=== PATIENT | male | born 1950 | race Caucasian/White ===

== ENCOUNTER → 2017-08-14 14:58 | Outpatient (CLI) | payer MEDICARE, OTHER, SELFPAY ==
--- NOTE | 2017-08-14 15:20 | ECHOD_ITS ---
Reason For Study: MURMUR Procedure This was a 2D Doppler, Color Flow transthoracic echocardiogram. The exam was of fair technical quality due to body habitus. The study was technically difficult. Exam performed in department. Left Ventricle Normal LV size. Left ventricular systolic function is normal. The estimated ejection fraction is 60 %. No evidence for diastolic dysfunction. No regional wall motion abnormalities noted. Right Ventricle Normal RV size. Normal systolic function. Atria The left atrium is mildly enlarged. Normal right atrium. No doppler evidence for ASD. Mitral Valve There is no mitral annular calcification. Normal mitral valve. Trivial mitral valve insufficiency. Tricuspid Valve Normal tricuspid valve. Mild tricuspid valve insufficiency. Unable to estimate RV systolic pressure/pulmonary artery pressure due to technically difficult study. Aortic Valve Trisinus/trileaflet aortic valve. Moderate focal aortic valve calcification. Trivial aortic valve insufficiency. Pulmonic Valve The pulmonic valve is not well visualized. Great Vessels Normal sized aortic root. Pericardium/Pleural No pericardial effusion. MMode/2D Measurements & Calculations LVIDd: 4.6 cm IVSd: 0.69 cm LVOT diam: 2.1 cm LVIDs: 3.0 cm LVPWd: 0.82 cm LVOT area: 3.4 cm2 RVDd: 2.9 cm FS: 36.1 % Ao root diam: 3.0 cm LAV(MOD-bp): 37.8 ml EDV(MOD-sp2): 98.1 ml LAV(MOD-bp) Indexed: 18.7 ml/m2 EF(MOD-sp2): 67.2 % LAV(MOD-sp2): 35.9 ml LAV(MOD-sp4): 38.7 ml SV(MOD-sp2): 65.9 ml LA A4 area: 15.3 cm2 RA A4 area: 10.8 cm2 Doppler Measurements & Calculations MV E max cory: 68.8 cm/sec Lat Peak E' Cory: 10.3 cm/sec Med Peak E' Cory: 6.6 cm/sec MV A max cory: 52.1 cm/sec E/E' lat: 6.7 E/E' med: 10.5 MV E/A: 1.3 Ao V2 max: 130.4 cm/sec LV V1 max: 97.6 cm/sec PA V2 max: 132.8 cm/sec Ao max P.8 mmHg LV V1 max P.8 mmHg MORRIS(V,D): 2.5 cm2 Interpretation Summary The study was technically difficult. Left ventricular systolic function is normal. The estimated ejection fraction is 60 %. The left atrium is mildly enlarged. Trivial mitral valve insufficiency. Mild tricuspid valve insufficiency. Moderate focal aortic valve calcification. Trivial aortic valve insufficiency. Unable to estimate RV systolic pressure/pulmonary artery pressure due to technically difficult study. No evidence for diastolic dysfunction. Ordering Physician: Claudia Guy Referring Physician: Claudia Guy Performed By: Nasreen Leblanc, RDCS, RVT
== END ==
PROVIDERS: Family Provider Family Medicine; PCP Family Medicine; Visit Provider Family Medicine
DX: R01.1 Cardiac murmur, unspecified (principal)
CPT/HCPCS: 93306

== ENCOUNTER 2017-08-18 10:25 | Inpatient (IN) | payer MEDICARE, OTHER, SELFPAY ==
[2017-08-05 13:04] VITALS: BP 117/76; PULSE 82; RESP 18; TEMP 37.2; O2SAT 96; BMI 34.0
--- NOTE | 2017-08-05 13:31 | SDCEKG_ITS ---
Test Reason : Blood Pressure : / mmHG Vent. Rate : 072 BPM Atrial Rate : 072 BPM P-R Int : 170 ms QRS Dur : 086 ms QT Int : 390 ms P-R-T Axes : 030 001 -24 degrees QTc Int : 427 ms Normal sinus rhythm Nonspecific T wave abnormality Abnormal ECG Confirmed by ROSE PELLETIER, CARLOTA ([id number]), subeditor AMARILYS GANDHI ([id number]) on 08/06/2017 9:09:36 AM Referred By: RUBIO WHEELER Confirmed By:CARLOTA ROSE MD
[2017-08-05 14:06] LABS: Hematocrit 45.6 % (40-54); Hemoglobin 15.3 g/dl (13.0-16.5); Mean Corp Hgb Conc 33.6 g/gl (32-36); Mean Corpuscular Hgb 29.9 pg (27.0-32.0); Mean Corpuscular Volume 89.2 fL (80-94); Mean Platelet Vol. 9.6 fl (6.2-12.0); Platelet Count 133 K/mm3 (150-450); RBC Distribution Width CV 12.6 % (11.6-14.6); RBC Distribution Width SD 40.6 fl (35.1-43.9); Red Blood Count 5.11 M/mm3 (4.6-6.2); White Blood Count 5.9 K/mm3 (4.4-11.0)
[2017-08-05 14:07] LABS: Scan Indicated on CBC? Y/N NO
[2017-08-05 14:21] LABS: International Normalized Ratio 1.1; Partial Thromboplast Time 29.7 Seconds (24.1-36.2); Prothrombin Time (Protime)PT. 14.5 SECONDS (11.7-14.9)
[2017-08-05 14:34] LABS: AST(SGOT) 18 U/L (15-37); Alanine Aminotransfer ALT/SGPT 28 U/L (16-61); Albumin, Serum 3.6 g/dL (3.2-5.0); Alkaline Phosphatase 69 U/L (45-117); Anion Gap 8 (5-15); BUN 13 mg/dL (7-18); BUN/Creat Ratio 13.8 RATIO (10-20); Bilirubin, Direct 0.17 mg/dL (0.00-0.30); Calcium,Total 8.4 mg/dL (8.5-10.1); Chloride 104 mmol/L (98-107); Creatinine, Serum 0.94 mg/dL (0.70-1.30); EST Glomerular Filtration Rate 86 mL/min (>60); Est Glom Filt Rate - Afr Amer 104 mL/min (>60); Globulin 3.5 g/dL (2.2-4.2); Glucose 120 mg/dL (74-106); Potassium 3.4 mmol/L (3.5-5.1); Protein, Total 7.1 g/dL (6.4-8.2); Sodium Level 138 mmol/L (136-145)
[2017-08-18] VITALS (13 sets, daily range): BP systolic 90–126; BP diastolic 51–90; PULSE 48–70; RESP 14–18; TEMP 36.1–36.5; O2SAT 96–100; BMI 34.0
[2017-08-18] MEDS: oxyCODONE HCl Cr 10 MG Tablet PO (05:55)
[2017-08-18] MEDS: Acetaminophen 500 MG Tablet 1000 MG PO ×3 (05:56→21:35)
[2017-08-18] MEDS: Celecoxib 200 MG Capsule 400 MG PO (05:56)
[2017-08-18] MEDS: Lactated Ringers 1,000 ML 999 ML IV (06:30)
[2017-08-18] MEDS: Cefazolin 2 GM in 0.9% Normal Saline 100 ML IV (07:19)
--- NOTE | 2017-08-18 07:25 | PCM.OPRPT ---
Report of Operation Date of Procedure: 08/18/17 Pre-Operative Diagnosis: Severe osteoarthritis right knee Post-Operative Diagnosis: Severe osteoarthritis right knee Surgery/Procedure Performed:: Total knee arthroplasty right Description of Surgical Findings:: Eburnation of bone, periarticular osteophytes consistent with end-stage osteoarthritis grinder outside diameter: Roberth Schultz Type of Anesthesia:: Spinal Anesthesiologist: Chance Yusuf Special Medications: txa Estimated Blood Loss (mL): 100 Fluids Replaced: See anesthesia report Description of Procedure: Implants: [place] triathlon size 5 CR femur, 5 tibia, 35 x 10 mm patella 9 mm CS articulating spacer cemented components with Simplex Indications: Patient has severe end-stage osteoarthritis diagnosed via x-rays in the knee. They have failed all forms of conservative measures including activity modification, injections, anti-inflammatories, use of assistive device. The patient has pain that affects on a daily basis and prevents him from doing things that they enjoyed. They have elected to undergo the above procedure. The risks of the procedure were discussed at length and their questions were answered. Procedure description: The patient was greeted in the preoperative area. The right knee was then marked with a surgical marker. Patient was then taken to or [address]. They were administered a dose of antibiotics as well as tranexamic acid. Once adequate anesthesia was obtained and airway was secured to placed in supine position on the operating room table. A well-padded tourniquet was placed on the affected extremity. Leg was then prepped and draped in the usual sterile fashion from the knee down. Ioban was used on the skin. Surgical timeout was then performed and confirmed with all present. Six-inch Esmarch was used to examine the limb and tourniquet was then inflated to 250 mmHg. A longitudinal incision was then planned and carried out in the anterior aspect of the knee. The dissection was then carried the length of the incision the extensor mechanism was identified. Standard medial parapatellar arthrotomy was then performed revealing severe eburnation of bone and periarticular osteophytes. There is complete loss of cartilage especially in the medial compartment with varus alignment. Anterior fat pad was removed for visualization purposes and the anterior medial aspect of the tibia was skeletonized for exposure to the knee. The knee was then flexed the patella was inverted. Opening reamer was then used in the femur approximately 1 cm anterior to the attachment of the PCL. The intramedullary valgus wand was then placed in the femur set at 5? of valgus. The distal femoral cutting jig was then applied to the femur with anticipated resection of approximately 8 mm. This was then made with a oscillating saw. The sizing guide was then placed referencing off the posterior condyles and also reference off the epicondylar axis. This was measured and the appropriate size 4-in-1 cutting jig was then applied to the distal femur. Anterior posterior cuts were made followed by the anterior and posterior chamfer cuts. These bony pieces and fragments were removed and placed on the back table. Posterior retractor was then utilized and the tibia was subluxed anteriorly. Extramedullary tibial alignment jig was then applied to the tibia referencing off the medial one third of the tibial tubercle the anterior tibial spine the middle aspect of the tibiotalar joint. Also reference off patient's [place] slope. The tibial cutting jig was then pinned with anticipated resection of 2 mm off of the deficient medial tibial condyle. This cut was made with the oscillating saw. Once this was complete a laminar broomcorn sorter was utilized in both medial lateral meniscus were removed and a posterior capsular osteophytes were also removed. Posterior capsule release was performed in the posterior capsule as well as the geniculate arteries are treated with the aqua Mariia. The tibia was incised and the appropriate sized tibial tray was then pinned. The femoral box cutting jig was then applied to the femur and the box was prepared removing a portion of the intercondylar notch. The femoral trial was then placed and the knee was trialed. Full flexion-extension were easily achieved. The knee seemed to balance quite nicely. Any remaining osteophytes were removed at this time. Once this was complete the patella was everted and the Ivett patella reaming device was then utilized the patella was then placed in the appropriate jig and reamer was then used to remove approximately 9 mm of the undersurface of the patella. A soft tissue remaining was in the way was removed and patella trial was then placed listed maintain excellent tracking using the no thumbs technique. The tibial tray at this point was punched to accommodate the fins of the final implant. At this point cement was mixed on the back table. The trial components were removed and the knee was copiously irrigated. Did use a cocktail of injection for postoperative pain control. The final components were then cemented in the standard fashion and excess cement was removed with cement removal tools and patellar clamp is placed in the patella. As the cement had cured in full extension tourniquet was deflated and hemostasis was perfect with Bovie cautery as well as the aqua Manus. Needle is once again trialed with different size polyethylenes to ensure the full range of motion was achieved as well as excellent balancing ligamentously was achieved. At this point the knee was copiously irrigated. Final implant was then inserted locking mechanism was engaged and confirmed to be locked. The arthrotomy was then closed with #1 Vicryl aggravate type fashion interrupted. Subcutaneous tissue was closed with 0 Vicryl and surgical jade were placed in the skin. A occlusive silver impregnated dressing was then applied followed by well-padded sterile dressing secured with an Ramirez wrap. The patient was taken to the PACU in stable condition. No complications known at this time. Postoperatively we will maintain standard total knee postoperative protocol. The use of the physician medical office receptionist assistant was integral during this procedure. They assisted with positioning placement of the tourniquet retracting closure and placement of the dressing. The procedure would have been much more difficult without their expertise and assistance - Complications None known - Admit VTE Documentation VTE Present on Admission: Yes VTE Mechan Device Prophylaxis: SCD's, Thigh High ROSARIO Hose VTE Pharm Prophylaxis ordered?: Yes
--- NOTE | 2017-08-18 09:38 | RAD_ITS ---
STUDY: X-RAY - RIGHT KNEE REASON FOR EXAM: Male, 67 years old. Total knee replacement. TECHNIQUE: AP and lateral view(s) of the knee. COMPARISON: Comparison is made with prior radiograph dated May 24, 2016. FINDINGS: Normal visualized distal femur. Normal visualized proximal tibia and fibula. Normal proximal tibiofibular articulation. The patient is status post total knee replacement. There is good alignment. Postoperative soft tissue changes. RAD/Knee 1 or 2 Views IMPRESSION: Total knee replacement. There is good alignment. Postoperative soft tissue changes. Electronically Signed: Adrian Lawler MD at 10:22 EDT Tel [phone], Service support ,
[2017-08-18] MEDS: Ketorolac 15 MG/ML Vial IV (11:01)
[2017-08-18] MEDS: Lactated Ringers 1,000 ML 125 ML IV ×2 (12:01→18:59)
--- NOTE | 2017-08-18 12:18 | CASEMGMT ---
[facility] Face to Face with patient for initial transition planning/care coordination assessment. RN ROBBIE introduced self and role at [facility]. Patient lying in bed, alert and oriented, at bedside. Patient willing to participate in assessment and is able to answer all questions appropriately. Care providers, pharmacy, and demographics verified. See link attached. Patient wishes to discharge home and is setup with [facility] for outpatient therapy with providing transportation. Patient states he has no further needs or concerns at this time. CM to follow for discharge planning needs that may arise. Disposition Plan: Patient to discharge home with outpatient therapy, family support, and follow-u plans in place.
[2017-08-18] MEDS: Cefazolin 1 GM/50 ML BAG IV ×2 (13:52→23:03)
--- NOTE | 2017-08-18 16:04 | NURSING ---
PT HAS NOT VOIDED SINCE ARRIVED TO FLOOR. THIS NURSE ENCOURAGED PT TO USE BATHROOM. WAS ONLY ABLE TO VOID AN UNMEASUREABLE AMT OF URINE. APPROXIMATELY 25CC. THIS NURSE ASSISTED PT INTO BED AND BLADDER SCANNED FOR 641ML. WILL WAIT ANOTHER 2 HOURS AND AT 1800 IF NO VOID I WILL [facility].
[2017-08-18] MEDS: Aspirin 325 MG Tablet PO (18:54)
[2017-08-18] MEDS: 0.9% NaCl Peripheral Flush Adult/Peds IV (19:03)
[2017-08-18] MEDS: Morphine 4 MG/ML Syringe IV (19:03)
[2017-08-18] MEDS: Senna/Docusate Sodium 1 Tablet 2 TABLET PO (21:34)
[2017-08-18] MEDS: morphine SR 15 MG Tablet PO (21:36)
[2017-08-18] MEDS: oxyCODONE 5 MG Tablet PO (23:02)
[2017-08-19 03:27] VITALS: BP 117/73; PULSE 71; RESP 16; TEMP 36.7; O2SAT 96
[2017-08-19] MEDS: oxyCODONE 5 MG Tablet PO ×2 (03:33→16:58)
[2017-08-19] MEDS: Acetaminophen 500 MG Tablet 1000 MG PO ×3 (06:09→21:08)
[2017-08-19] MEDS: 0.9% NaCl Peripheral Flush Adult/Peds IV (06:10)
[2017-08-19 06:44] LABS: Hematocrit 42.2 % (40-54); Hemoglobin 14.2 g/dl (13.0-16.5); Mean Corp Hgb Conc 33.6 g/gl (32-36); Mean Corpuscular Hgb 30.9 pg (27.0-32.0); Mean Corpuscular Volume 91.9 fL (80-94); Mean Platelet Vol. 9.7 fl (6.2-12.0); Platelet Count 150 K/mm3 (150-450); RBC Distribution Width CV 12.9 % (11.6-14.6); RBC Distribution Width SD 42.6 fl (35.1-43.9); Red Blood Count 4.59 M/mm3 (4.6-6.2); White Blood Count 9.4 K/mm3 (4.4-11.0)
[2017-08-19 06:49] LABS: Scan Indicated on CBC? Y/N NO
[2017-08-19 07:05] LABS: Anion Gap 9 (5-15); BUN 11 mg/dL (7-18); Calcium,Total 8.6 mg/dL (8.5-10.1); Chloride 105 mmol/L (98-107); Creatinine, Serum 0.85 mg/dL (0.70-1.30); EST Glomerular Filtration Rate 96 mL/min (>60); Est Glom Filt Rate - Afr Amer 117 mL/min (>60); Estimated Creatinine Clearance 78.19 ml/min; Glucose 100 mg/dL (74-106); Potassium 3.5 mmol/L (3.5-5.1); Sodium Level 138 mmol/L (136-145)
--- NOTE | 2017-08-19 07:24 | PCM.PN.ORT ---
Subjective: Patient sitting at bedside. Pain well managed. Denies chest pain, shortness breath, calf pain, nausea vomiting. No other complaints Objective: Dressing is clean dry intact. Patient is afebrile, vital signs within normal limits. Patient neurovascular is otherwise intact. Negative signs and symptoms of DVT. - Physical Exam General: Alert, Oriented x3, Cooperative HEENT: PERRLA Oral: Moist Mucosa Neurological: Cranial nerves II-XII grossly intact Psych/Mental Status: Normal Affect, Alert and oriented to time, place, person, mood and affect Vital Signs Temp Pulse Resp BP Pulse Ox 98.0 F 71 16 117/73 96 08/19/17 03:27 08/19/17 03:27 08/19/17 03:27 08/19/17 03:27 08/19/17 03:27 Oxygen Delivery Method Room Air Weight: 95.5 kg Body Mass Index (BMI) 34.0 Intake and Output for Last 24 Hours 08/17/17 08/18/17 08/19/17 23:59 23:59 23:59 Intake Total 3327 / 3327 735 / 735 Output Total 2150 / 2150 400 / 400 Balance 1177 / 1177 335 / 335 Laboratory Tests Past 24 Hrs 08/19/17 08/19/17 06:10 06:10 WBC 9.4 RBC 4.59 L Hgb 14.2 Hct 42.2 MCV 91.9 MCH 30.9 MCHC 33.6 RDW 12.9 RDW Differential 42.6 Plt Count 150 MPV 9.7 Sodium 138 Potassium 3.5 Chloride 105 Carbon Dioxide 24.0 Anion Gap 9 BUN 11 Creatinine 0.85 Estim Creat Clear Calc 78.19 Est GFR (MDRD) Af Amer 117 Est GFR (MDRD) Non-Af 96 BUN/Creatinine Ratio 13.0 Glucose 100 Calcium 8.6 Medical Necessity - Tobacco Use Smoking Status: Former smoker Tobacco Use: Cigarettes Assessment/Plan Status post right total knee. Plan 1. Continue all pain medications as prescribed 2. Begin physical therapy today 3. Aspirin 325 mg 1 p.o. every 12 hours ?30 days for postop DVT prophylaxis 4. Encourage incentive spirometry 5. Probable discharge home tomorrow
[2017-08-19 07:48] VITALS: PULSE 70
[2017-08-19] MEDS: Senna/Docusate Sodium 1 Tablet 2 TABLET PO ×2 (07:55→21:08)
[2017-08-19] MEDS: Aspirin 325 MG Tablet PO ×2 (07:56→16:58)
[2017-08-19] MEDS: Famotidine 20 MG Tablet PO (07:56)
[2017-08-19 09:57] VITALS: BP 122/77; PULSE 74; RESP 18; TEMP 37.2; O2SAT 97
[2017-08-19] MEDS: morphine SR 15 MG Tablet PO ×2 (10:00→21:08)
[2017-08-19 14:26] VITALS: BP 146/78; PULSE 81; RESP 18; TEMP 37.2; O2SAT 94
[2017-08-19 20:50] VITALS: BP 128/81; PULSE 88; RESP 18; TEMP 37.2; O2SAT 95
[2017-08-20 02:50] VITALS: BP 121/87; PULSE 85; RESP 18; TEMP 36.8; O2SAT 95
[2017-08-20] MEDS: Acetaminophen 500 MG Tablet 1000 MG PO ×2 (06:21→13:45)
[2017-08-20 07:04] LABS: Hematocrit 41.3 % (40-54); Hemoglobin 13.6 g/dl (13.0-16.5); Mean Corp Hgb Conc 32.9 g/gl (32-36); Mean Corpuscular Hgb 29.8 pg (27.0-32.0); Mean Corpuscular Volume 90.6 fL (80-94); Mean Platelet Vol. 9.4 fl (6.2-12.0); Platelet Count 125 K/mm3 (150-450); RBC Distribution Width CV 13.2 % (11.6-14.6); RBC Distribution Width SD 43.3 fl (35.1-43.9); Red Blood Count 4.56 M/mm3 (4.6-6.2); White Blood Count 10.8 K/mm3 (4.4-11.0)
[2017-08-20 07:07] LABS: Scan Indicated on CBC? Y/N NO
[2017-08-20] MEDS: Aspirin 325 MG Tablet PO (08:04)
[2017-08-20] MEDS: oxyCODONE 5 MG Tablet PO (08:06)
--- NOTE | 2017-08-20 08:12 | PCM.PN.ORT ---
Subjective: Patient sitting at bedside eating breakfast. Pain well managed. Patient denies chest pain, shortness breath, calf pain, nausea vomiting. Has no other complaints. Ready for discharge home. Objective: Dressing is clean dry intact. Negative signs and symptoms of DVT. Vital signs labs within normal limits. Patient is afebrile neurovascular is intact. - Physical Exam General: Alert, Oriented x3, Cooperative HEENT: PERRLA Oral: Moist Mucosa Cardiovascular: Regular rate Neurological: Cranial nerves II-XII grossly intact Psych/Mental Status: Normal Affect, Alert and oriented to time, place, person, mood and affect Vital Signs Temp Pulse Resp BP Pulse Ox 98.3 F 85 18 121/87 H 95 08/20/17 02:50 08/20/17 02:50 08/20/17 02:50 08/20/17 02:50 08/20/17 02:50 Oxygen Delivery Method Room Air Weight: 95.5 kg Body Mass Index (BMI) 34.0 Intake and Output for Last 24 Hours 08/18/17 08/19/17 08/20/17 23:59 23:59 23:59 Intake Total 3327 / 3327 735 / 735 720 / 720 Output Total 2150 / 2150 400 / 400 925 / 925 Balance 1177 / 1177 335 / 335 -205 / -205 Laboratory Tests Past 24 Hrs 08/20/17 06:52 WBC 10.8 RBC 4.56 L Hgb 13.6 Hct 41.3 MCV 90.6 MCH 29.8 MCHC 32.9 RDW 13.2 RDW Differential 43.3 Plt Count 125 L MPV 9.4 Medical Necessity - Tobacco Use Smoking Status: Former smoker Tobacco Use: Cigarettes Assessment/Plan Status post right total knee. Plan 1. Continue all pain medications as prescribed 2. Continue physical therapy at [facility] 3. Aspirin 325 mg 1 p.o. every 12 hours ?30 days for postop DVT prophylaxis 4. Follow-up as scheduled 5. Discharge home today
--- NOTE | 2017-08-20 08:18 | PCM.DC.TKR ---
Discharge Diet: No Restrictions Discharge Activity: May Not Drive, May Shower, Use Walker May shower in (days): 2 Ice area for (Minutes): 20 - each hour while awake. Weight Bearing Status: Weight bearing as tolerated Elevate: Operative Extremity Additional Activity Instructions:: Wear elastic stockings for 2 weeks after your surgery. Call your doctor if your incision/area has: Continuous Slow Oozing, Sudden Increased Bleeding, Increased Pain/ Swelling, Increased Redness, Foul Smelling Discharge Call your doctor if you observe: Fever of 101 or Higher, Coldness, Increased Pain - in extremity, Numbness or Tingling, Change in Color, Calf discomfort, Uncontrolled pain Change Dressing in (Days):: 0 - and daily as needed. Remove Dressing in (days):: 7 Cleanse incision/area with: Soap & Water Allergies/Adverse Reactions: Allergies No Known Allergies Allergy (Verified 08/05/17 13:02) Medications to take at Discharge Acetaminophen [Tylenol] 1,000 mg PO Q8 #90 tab 08/20/17 Aspirin 325 mg PO BIDCM #60 tab 08/20/17 Oxycodone [Oxyir] 5 - 10 mg PO Q6H PRN PRN 7 Days #60 tab 08/20/17 morphine SR tablet [Ms Contin] 15 mg PO BID 7 Days #14 tab 08/20/17 The following prescriptions were given: Oxycodone [Oxyir] 5 - 10 mg PO Q6H PRN PRN 7 Days #60 tab PRN Reason: Mod-Severe Pain (4-10/10) Acetaminophen [Tylenol] 1,000 mg PO Q8 #90 tab Aspirin 325 mg PO BIDCM #60 tab morphine SR tablet [Ms Contin] 15 mg PO BID 7 Days #14 tab Primary Care Physician: Idris Castillo DO [Primary Care Provider] - Please Follow Up With: Roberth Schultz PA-C When: as scheduled (see pink sheet)
[2017-08-20 08:55] VITALS: BP 122/77; PULSE 80; RESP 18; TEMP 37.3; O2SAT 93
[2017-08-20 09:00] VITALS: PULSE 80
[2017-08-20] MEDS: Famotidine 20 MG Tablet PO (10:19)
[2017-08-20] MEDS: morphine SR 15 MG Tablet PO (10:19)
[2017-08-20] MEDS: Senna/Docusate Sodium 1 Tablet 2 TABLET PO (10:19)
[2017-08-20 13:42] VITALS: BP 123/74; PULSE 86; RESP 18; TEMP 36.9; O2SAT 97
== END 2017-08-20 14:35 | disposition home or self-care (01) | DRG 470 ==
PROVIDERS: Anesthesiology; Admitting Provider Orthopaedic Surgery; Family Provider Family Medicine; PCP Family Medicine; Visit Provider Orthopaedic Surgery
PROC: 0SRC0J9 Replacement of Right Knee Joint with Synthetic Substitute, Cemented, Open Approach (ICD-10-PCS; CPT 27447; principal; 2017-08-18 06:50)
DX: M17.11 Unilateral primary osteoarthritis, right knee (principal); Z87.891 Personal history of nicotine dependence
CPT/HCPCS: 36415; 73560; 80048; 80076; 85027; 85610; 85730; 87077; 87081; 97110; 97116; 97162; 97165; 97530; 97535; C1776; J7120; A4216

== ENCOUNTER → 2018-04-30 16:41 | Outpatient (CLI) | payer MEDICARE, OTHER, SELFPAY ==
[2018-04-30 17:51] LABS: Absolute Lymphocyte Count 2.32 X10^3/ul (0.83-4.51); Absolute Neutrophil Count 3.6 X10^3/uL (2.0-7.7); Basophil# 0.02 X10^3/uL; Basophil% 0.3 % (0-1); Eosinophil# 0.14 X10^3/uL; Eosinophils% 2.1 % (0-5); Hematocrit 47.7 % (40-54); Hemoglobin 15.7 g/dl (13.0-16.5); Lymphocyte # 2.32 X10^3/ul (4.0); Lymphocyte % 34.1 % (19-41); Mean Corp Hgb Conc 32.9 g/gl (32-36); Mean Platelet Vol. 9.9 fl (6.2-12.0); Monocyte# 0.71 X10^3/uL; Monocyte% 10.4 % (0-10); Platelet Count 155 K/mm3 (150-450); RBC Distribution Width CV 12.9 % (11.6-14.6); RBC Distribution Width SD 42.9 fl (35.1-43.9); Red Blood Count 5.24 M/mm3 (4.6-6.2); White Blood Count 6.8 K/mm3 (4.4-11.0)
[2018-04-30 17:55] LABS: POSITIVE COUNT NO; POSITIVE DIFFERENTIAL NO; POSITIVE MORPHOLOGY NO
[2018-04-30 18:47] LABS: AST(SGOT) 22 U/L (15-37); Alanine Aminotransfer ALT/SGPT 36 U/L (16-61); Albumin, Serum 3.9 g/dL (3.2-5.0); Alkaline Phosphatase 80 U/L (45-117); Anion Gap 9 (5-15); BUN 14 mg/dL (7-18); BUN/Creat Ratio 19.3 RATIO (10-20); Chloride 103 mmol/L (98-107); Cholesterol 202 mg/dL (200); Creatinine, Serum 0.73 mg/dL (0.70-1.30); EST Glomerular Filtration Rate 115 mL/min (>60); Est Glom Filt Rate - Afr Amer 139 mL/min (>60); Globulin 3.8 g/dL (2.2-4.2); Glucose 78 mg/dL (74-106); High Density Lipoprotein 44 mg/dL; PSA,Total - Annual Screen 1.64 ng/mL (0.00-4.00); Potassium 3.8 mmol/L (3.5-5.1); Protein, Total 7.7 g/dL (6.4-8.2); Sodium Level 137 mmol/L (136-145); Triglycerides 85 mg/dL; Very Low Density Lipoprotein 17 mg/dL (5-40)
== END ==
PROVIDERS: Family Provider Family Medicine; PCP Family Medicine; Visit Provider Family Medicine
DX: Z00.01 Encounter for general adult medical examination with abnormal findings (principal); E78.5 Hyperlipidemia, unspecified; Z12.5 Encounter for screening for malignant neoplasm of prostate
CPT/HCPCS: 36415; 80053; 80061; 84153; 85025; G0103

== ENCOUNTER → 2019-09-24 | Outpatient (CLI) | payer MEDICARE, OTHER, SELFPAY ==
[2019-09-24 15:13] LABS: Erythrocyte Sedimentation Rate 19 mm/hr (0-20)
[2019-09-24 15:18] LABS: Vitamin B12 396 pg/mL (211-911); Vitamin D,25 Hydroxy 29.4 ng/mL
[2019-09-24 15:21] LABS: Absolute Lymphocyte Count 2.04 X10^3/uL (0.83-4.51); Absolute Neutrophil Count 3.2 X10^3/uL (2.0-7.7); Basophil# 0.02 X10^3/uL; Basophil% 0.3 % (0-1); Eosinophil# 0.11 X10^3/uL; Eosinophils% 1.8 % (0-5); Hematocrit 45.1 % (40-54); Hemoglobin 14.4 g/dL (13.0-16.5); Lymphocyte # 2.04 X10^3/ul (4.0); Lymphocyte % 33.7 % (19-41); Mean Corp Hgb Conc 31.9 g/dL (32-36); Mean Corpuscular Hgb 29.6 pg (27.0-32.0); Mean Corpuscular Volume 92.8 fL (80-94); Mean Platelet Vol. 10.6 fl (6.2-12.0); Monocyte# 0.72 X10^3/uL; Monocyte% 11.9 % (0-10); NRBC Flagged by Analyzer 0 % (0-5); Neutrophil # 3.15 X10^3/uL (2.7-7.7); Platelet Count 131 K/mm3 (150-450); RBC Distribution Width CV 13.3 % (11.6-14.6); RBC Distribution Width SD 44.8 fl (35.1-43.9); Red Blood Count 4.86 M/mm3 (4.6-6.2); White Blood Count 6.1 K/mm3 (4.4-11.0)
[2019-09-24 15:22] LABS: AST(SGOT) 16 U/L (15-37); Alanine Aminotransfer ALT/SGPT 32 U/L (16-61); Albumin, Serum 3.6 g/dL (3.2-5.0); Alkaline Phosphatase 75 U/L (45-117); Anion Gap 8 (5-15); BUN 16 mg/dL (7-18); BUN/Creat Ratio 20.7 RATIO (10-20); CPK Total, Creatine Kinase 114 U/L (39-308); Calcium,Total 8.9 mg/dL (8.5-10.1); Chloride 105 mmol/L (98-107); Creatinine, Serum 0.77 mg/dL (0.70-1.30); EST Glomerular Filtration Rate 106 mL/min (>60); Est Glom Filt Rate - Afr Amer 129 mL/min (>60); Globulin 3.7 g/dL (2.2-4.2); Glucose 102 mg/dL (74-106); PSA,Total - Annual Screen 1.67 ng/mL (0.00-4.00); Potassium 3.8 mmol/L (3.5-5.1); Protein, Total 7.3 g/dL (6.4-8.2); Sodium Level 138 mmol/L (136-145); T4 Free Direct 0.88 ng/dL (0.76-1.46); Thyroid Stim Hormone (TSH) 2.91 uIU/mL (0.358-3.74)
== END | disposition home or self-care (01) ==
LOC: MTLAB 12:21
PROVIDERS: PCP Family Medicine; Referring Provider Family Medicine; Visit Provider Family Medicine
DX: D69.6 Thrombocytopenia, unspecified (principal); E55.9 Vitamin D deficiency, unspecified; M62.81 Muscle weakness (generalized); R53.83 Other fatigue; Z12.5 Encounter for screening for malignant neoplasm of prostate
CPT/HCPCS: 36415; 80053; 82306; 82533; 82550; 82607; 84153; 84439; 84443; 85025; 85652; G0103

== ENCOUNTER → 2019-10-29 20:33 | Outpatient (CLI) | payer MEDICARE, OTHER, SELFPAY | PROVIDERS: PCP Family Medicine; Referring Provider Family Medicine; Visit Provider Family Medicine | DX: G47.10 Hypersomnia, unspecified (principal) | CPT/HCPCS: 95810 ==

== ENCOUNTER → 2019-12-24 20:29 | Outpatient (CLI) | payer MEDICARE, SELFPAY | PROVIDERS: PCP Family Medicine; Referring Provider Family Medicine; Visit Provider Family Medicine | DX: G47.10 Hypersomnia, unspecified (principal); G47.33 Obstructive sleep apnea (adult) (pediatric) | CPT/HCPCS: 95811 ==

== ENCOUNTER → 2021-10-15 | Outpatient (CLI) | payer MEDICARE, OTHER, SELFPAY ==
[2021-10-21 17:07] LABS: Lyme IgG P18 Ab Absent (.); Lyme IgG P23 Ab Present (.); Lyme IgG P28 Ab Absent (.); Lyme IgG P30 Ab Absent (.); Lyme IgG P39 Ab Present (.); Lyme IgG P41 Ab Present (.); Lyme IgG P45 Ab Absent (.); Lyme IgG P58 Ab Present (.); Lyme IgG P66 Ab Present (.); Lyme IgG P93 Ab Absent (.); Lyme IgM P23 Ab Present (.); Lyme IgM P39 Ab Absent (.); Lyme IgM P41 Ab Present (.)
[2021-10-21 17:31] LABS: Lyme IgG WB Interpretation Positive (.); Lyme IgM WB Interpretation Positive (.)
== END | disposition home or self-care (01) ==
PROVIDERS: PCP Family Medicine; Referring Provider Family Medicine; Visit Provider Family Medicine
DX: R21 Rash and other nonspecific skin eruption (principal)
CPT/HCPCS: 36415; 86617

== ENCOUNTER → 2022-10-29 | Outpatient (CLI) | payer MEDICARE, OTHER, SELFPAY | END | disposition home or self-care (01) | LOC: LAB 09:18 | PROVIDERS: PCP Family Medicine | DX: Z12.5 Encounter for screening for malignant neoplasm of prostate (principal) | CPT/HCPCS: 36415; 84153; G0103 ==

== ENCOUNTER 2022-12-27 10:52 | Emergency (ER) | payer MEDICARE, OTHER, SELFPAY ==
[2022-12-27 10:53] VITALS: BP 102/89; PULSE 73; RESP 16; TEMP 36.3; O2SAT 97; BMI 39.0
--- NOTE | 2022-12-27 11:26 | EX.ED.GUMALE ---
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 He has been currently being seen by his primary care physician Dr. Castillo and the urologist Dr. Paul Phillips. States he has had dark urine for the last couple weeks. He said its reji colored. He has had decreased oral intake nausea vomiting x1 and a fever as high as 102.3. He has had no urologic procedures. No cystoscopy. Prior similar symptoms: No Recent Illness/Hospitalization: No PFSH PFSH Home Medications acetaminophen 500 mg tablet 1,000 mg (2 x 500 mg) PO Q8 #90 tabs 08/20/17 [Rx Last Taken Unknown] aspirin 325 mg tablet 325 mg PO BIDCM #60 tabs 08/20/17 [Rx Last Taken Unknown] morphine 15 mg tablet,extended release 15 mg PO BID 7 days #14 tabs 08/20/17 [Rx Last Taken Unknown] oxycodone 5 mg tablet 5 - 10 mg (1 - 2 x 5 mg) PO Q6H PRN PRN Mod-Severe Pain (4-10/10) 7 days #60 tabs 08/20/17 [Rx Last Taken Unknown] Allergy/AdvReac Type Severity Reaction Status Date / Time No Known Allergies Allergy Verified 08/05/17 13:02 Social History Smoking Status: Former smoker ROS ROS ED ROS Narrative Abnormal colored urine. Fever. Nausea vomiting x1 several days ago. Review of Systems ROS Unobtainable: Denies due to encephalopathy Constitutional Constitutional ED: Reports fever(s) Eyes Eyes: Denies blurry vision ENT ENT ED: Denies ear pain Cardiovascular Cardiovascular: Denies chest pain Respiratory/Chest Respiratory/Chest: Denies cough or dyspnea Gastrointestinal Gastrointestinal: Reports nausea and vomiting; Denies abdominal pain, constipation, diarrhea or melena Genitourinary Genitourinary ED: Reports hematuria; Denies dysuria Musculoskeletal Musculoskeletal: Denies arthralgias or back pain Integumentary Denies abscess Neurologic Neurologic: Denies headache(s) Psychiatric Psychiatric: Denies anxiety Endocrine Endocrinology: Denies polydipsia Hematologic/Lymphatic Hematologic/Lymphatic: Denies easy bruising Allergic/Immunologic Allergic/Immunologic ED: Denies mouth swelling or tongue swelling EXAM Physical Exam Narrative Exam Narrative: Appearing 72-year-old male. Vital signs stable afebrile. Patient does not look septic toxic. HEENT exam mild dry mucous members. Otherwise unremarkable. Lungs clear. Heart regular rhythm. Abdomen soft, nontender, nondistended normal bowel sounds no peritoneal signs. Moving all 4 extremities. Nontender no edema. Neurologically is awake alert with no focal motor deficits. Back nontender. Const Vital Signs: 12/27/22 10:53 Temperature 97.3 F L Temperature Source Temporal Pulse Rate 73 Respiratory Rate 16 Blood Pressure 102/89 H Blood Pressure Mean 93 Pulse Ox 97 Oxygen Delivery Method Room Air Positive well nourished and well developed; Negative for cachectic, contractures or unkempt General Appearance ED: well developed and NAD; Negative for unkempt, cachectic, contractures or pallor Nutritional Appearance: Negative for cachectic HEENT Reports dry mucous membranes; Denies moist mucous membranes normocephalic and atraumatic; Negative for trauma or tenderness Mouth ED: Yes dry mucous membranes Mouth: dry mucous membranes Eyes PERRL and EOMs intact bilaterally General Eye ED: Negative for pale conjunctiva or scleral icterus Neck no lymphadenopathy, supple and no JVD General: Negative for tenderness Resp normal respiratory effort and clear to auscultation bilaterally Effort and Inspection: Negative for retractions Auscultation: Negative for rales, rhonchi or wheezes Cardio regular rate, regular rhythm, S1 normal heart sound, S2 normal heart sound and no murmurs Rate: Negative for bradycardia or tachycardic Rhythm: Negative for abnormal rhythm Heart Sounds: Negative for other GI non-tender, non-distended and no masses Inspection: Negative for abdominal distention Auscultation: normoactive bowel sounds Palpation: soft; Negative for tender or guarding no CVA tenderness Bladder / Kidney Exam: No CVA tenderness and No other Groin / Perineum Exam: Negative for edema or lesions Back/Spine no CVA tenderness General Back: Negative for CVA tenderness Cervical Spine: Negative for cervical spine tenderness Thoracic Spine / Upper Back: Negative for thoracic spinal tenderness Lumbar Spine / Lower Back: Negative for lumbar spinal tenderness Extremity Negative for normal to inspection General Extremety ED: Negative for edema General Extremity: Negative for edema Neuro oriented x3, CN's II-XII intact bilaterally, moves all extremities, no focal motor deficits and no sensory deficits noted Sensorium / Orientation: alert, oriented to person, oriented to place and oriented to time; Negative for orientation impaired, confused, lethargic or stuporous Motor Exam: strength 5/5 throughout Psych mental status grossly normal Appearance: Negative for unkempt Attitude: No agitated Mood & Affect: Negative for depressed, anxious or tearful Thought Process: normal thought process Thought Content: normal thought content Skin General Skin Exam: Negative for jaundice or pallor Lesions: no lesions and No lesion noted Rashes: no rashes Trauma: Negative for abrasion or laceration MDM MDM MDM Narrative Medical decision making narrative: 72-year-old male with recently discolored urine. Possible UTI with fever. Urinalysis and labs to be obtained. He will be given a liter of normal saline for mild dehydration. Repeat exam patient doing well at 1:35 PM. We went over all his test results. Will be discharged home with outpatient follow-up. History & Record Review Discussion w/independent historian: Patient and Family Lab Data Attestation: I reviewed the patient's lab results. Lab results narrative: CBC unremarkable. White count of 6. H&H 13 and 40. Platelets are low at 88,000. Electrolytes show a sodium 134. Potassium 3.4. Gap 7. Normal BUN and creatinine of 17 and 1. Glucose 122. Analysis shows 0 red cells. 0 white cells. 0 bacteria and no nitrates is negative. Due to his prior labs he had thrombocytopenia before. I did discuss this with his . Labs: Laboratory Results - last 24 hr 12/27/22 12/27/22 11:33 11:35 WBC 6.4 RBC 4.71 Hgb 13.3 Hct 40.3 MCV 85.6 MCH 28.2 MCHC 33.0 RDW Std Deviation 46.0 H RDW Coeff of Gayle 14.9 H Plt Count 88 L Immature Gran % (Auto) 1.300 H Neut % (Auto) 76.3 H Lymph % (Auto) 13.0 L [place] % (Auto) 8.8 Eos % (Auto) 0.3 Baso % (Auto) 0.3 Absolute Neuts (auto) 4.9 Absolute Lymphs (auto) 0.83 Nucleated RBC % 0 Differential Comment SCANNED Sodium 134 L Potassium 3.4 L Chloride 100 Carbon Dioxide 27.0 Anion Gap 7 BUN 17 Creatinine 1.01 Estim Creat Clear Calc 65.84 Est GFR (MDRD) Af Amer 94 Est GFR (MDRD) Non-Af 78 BUN/Creatinine Ratio 16.8 Glucose 122 H Calcium 9.6 Urine Color Yellow Urine Clarity Sl. Cloudy Urine pH 5.0 Ur Specific [place] 1.020 Urine Protein 30 H Urine Glucose (UA) Normal Urine Ketones 5 H Urine Occult Blood Negative Urine Nitrite Negative Urine Bilirubin 1 H Urine Urobilinogen 4 H Ur Leukocyte Esterase 25 H Urine RBC 0 SEEN Urine WBC 0-5 SEEN Ur Squamous Epith Cells 0-5 SEEN Urine Bacteria 0 SEEN Urine Mucus 1+ Discharge Plan Triage Chief Complaint: Complaint ED Provider: Davin Arndt Dx/Rx/DC Orders Clinical Impression: Generalized weakness Instructions: ED Weakness (Uncertain Cause) Prescriptions: No Action aspirin 325 MG tablet 325 mg PO BIDCM Qty: 60 0RF acetaminophen 500 MG tablet 1,000 mg PO Q8 Qty: 90 0RF morphine 15 MG tablet 15 mg PO BID 7 Days Qty: 14 0RF oxycodone 5 MG tablet 5 - 10 mg PO Q6H PRN PRN (Reason: Mod-Severe Pain (4-10/10)) 7 Days Qty: 60 0RF Primary Care Provider: Idris Castillo Referrals: Idris Castillo DO [Primary Care Provider] - 1 Week if not improving Activity Restrictions/Additional Instructions: Plenty of fluids and rest. Follow-up with your doctor to ensure you are improving. Your platelet count was low today at 88,000. You have had low platelets before. This will be set up just to be rechecked in the next 1 to 2 months. No signs of any urinary tract infection. Disposition Disposition: Home, Self Care
[2022-12-27 11:40] LABS: Bacteria 0 SEEN /hpf (None Seen); Red Blood Cells-Urine 0 SEEN /hpf (0-5)
[2022-12-27] MEDS: 0.9% Normal Saline (1000mL) 1,000 ML 1000 ML IV (11:45)
[2022-12-27 11:47] LABS: Absolute Lymphocyte Count 0.83 X10^3/uL (0.83-4.51); Absolute Neutrophil Count 4.9 X10^3/uL (2.0-7.7); Basophil# 0.02 X10^3/uL; Basophil% 0.3 % (0-1); Eosinophil# 0.02 X10^3/uL; Eosinophils% 0.3 % (0-5); Hematocrit 40.3 % (40-54); Hemoglobin 13.3 g/dL (13.0-16.5); Lymphocyte # 0.83 X10^3/ul (0.83-4.51); Mean Corpuscular Hgb 28.2 pg (27.0-32.0); Mean Corpuscular Volume 85.6 fL (80-94); Monocyte# 0.56 X10^3/uL; Monocyte% 8.8 % (0-10); NRBC Flagged by Analyzer 0 % (0-5); Neutrophil # 4.86 X10^3/uL (2.7-7.7); Neutrophil % 76.3 % (47-70); POSITIVE COUNT YES; Platelet Count 88 K/mm3 (150-450); RBC Distribution Width CV 14.9 % (11.6-14.6); Red Blood Count 4.71 M/mm3 (4.6-6.2); White Blood Count 6.4 K/mm3 (4.4-11.0)
[2022-12-27 11:48] LABS: Differential Indicated SCAN CRITERIA MET
[2022-12-27 11:49] LABS: Color, Urine Yellow (Yellow); Glucose, Dipstick Normal (Normal); Ketone-Dipstick 5 mg/dl (Negative); Leukocyte Esterase-Dipstick 25 /ul (Negative); Nitrite-Dipstick Negative (Negative); Occult Blood-Urine Negative /ul (Negative); Protein-Dipstick 30 mg/dl (Negative); Urine Bilirubin Dipstick 1 mg/dL (Negative); Urine Clarity Sl. Cloudy (Clear); Urine Urobilinogen 4 mg/dl (Normal)
[2022-12-27 11:54] LABS: Anion Gap 7 (5-15); BUN 17 mg/dL (7-18); BUN/Creat Ratio 16.8 RATIO (10-20); Calcium,Total 9.6 mg/dL (8.5-10.1); Chloride 100 mmol/L (98-107); Creatinine, Serum 1.01 mg/dL (0.70-1.30); EST Glomerular Filtration Rate 78 mL/min (>60); Est Glom Filt Rate - Afr Amer 94 mL/min (>60); Estimated Creatinine Clearance 65.84 ml/min; Glucose 122 mg/dL (74-106); Potassium 3.4 mmol/L (3.5-5.1); Sodium Level 134 mmol/L (136-145)
[2022-12-27 12:03] LABS: Mucous, Urine 1+ /hpf (<or=2+); Squamous Epithelial Cells - UA 0-5 SEEN /hpf (0-5); White Blood Cells 0-5 SEEN /hpf (0-5)
[2022-12-27 12:10] LABS: Differential Comment SCANNED
[2022-12-27 13:45] VITALS: RESP 18
== END 2022-12-27 13:46 | disposition home or self-care (01) ==
PROVIDERS: Emergency Provider Emergency Medicine; PCP Family Medicine; Visit Provider Emergency Medicine
DX: R53.1 Weakness (principal); E86.0 Dehydration; R11.2 Nausea with vomiting, unspecified; Z87.891 Personal history of nicotine dependence; R50.9 Fever, unspecified
CPT/HCPCS: 80048; 81001; 85025; 96360; 96361; 99283; J7030

== ENCOUNTER → 2023-01-15 | Outpatient (CLI) | payer MEDICARE, OTHER, SELFPAY ==
[2023-01-15 15:17] LABS: Absolute Neutrophil Count 2.5 X10^3/uL (2.0-7.7); Basophil# 0.01 X10^3/uL; Basophil% 0.3 % (0-1); Eosinophil# 0.03 X10^3/uL; Eosinophils% 0.8 % (0-5); Hematocrit 37.7 % (40-54); Hemoglobin 11.9 g/dL (13.0-16.5); Lymphocyte % 21.2 % (19-41); Mean Corp Hgb Conc 31.6 g/dL (32-36); Mean Corpuscular Hgb 28.7 pg (27.0-32.0); Mean Corpuscular Volume 90.8 fL (80-94); Monocyte# 0.42 X10^3/uL; Monocyte% 11.1 % (0-10); NRBC Flagged by Analyzer 0 % (0-5); Neutrophil # 2.47 X10^3/uL (2.7-7.7); Neutrophil % 65.5 % (47-70); POSITIVE COUNT YES; Platelet Count 82 K/mm3 (150-450); RBC Distribution Width SD 52.1 fl (35.1-43.9); Red Blood Count 4.15 M/mm3 (4.6-6.2); White Blood Count 3.8 K/mm3 (4.4-11.0)
[2023-01-15 15:45] LABS: Differential Indicated SCAN CRITERIA MET
[2023-01-15 15:57] LABS: ALB/GLOB Ratio 0.9 RATIO (0.9-2.4); AST(SGOT) 21 U/L (15-37); Alanine Aminotransfer ALT/SGPT 39 U/L (16-61); Albumin, Serum 3.4 g/dL (3.2-5.0); Alkaline Phosphatase 53 U/L (45-117); Anion Gap 9 (5-15); BUN 12 mg/dL (7-18); BUN/Creat Ratio 16.6 RATIO (10-20); CPK Total, Creatine Kinase 82 U/L (39-308); Calcium,Total 9.3 mg/dL (8.5-10.1); Chloride 101 mmol/L (98-107); Creatinine, Serum 0.72 mg/dL (0.70-1.30); EST Glomerular Filtration Rate 114 mL/min (>60); Est Glom Filt Rate - Afr Amer 138 mL/min (>60); Globulin 3.9 g/dL (2.2-4.2); Glucose 100 mg/dL (74-106); Potassium 3.2 mmol/L (3.5-5.1); Protein, Total 7.3 g/dL (6.4-8.2); Sodium Level 134 mmol/L (136-145); Thyroid Stim Hormone (TSH) 2.79 uIU/mL (0.358-3.74)
[2023-01-15 16:00] LABS: Hemoglobin A1c 4.5 % (3.8-5.6)
[2023-01-15 16:09] LABS: Erythrocyte Sedimentation Rate 36 mm/hr (0-20)
[2023-01-15 17:31] LABS: Anisocytosis RARE; Platelet Estimate MOD DEC (ADEQ); Red Cell Morphology N CHROM NORMAL (NORM C&C)
== END | disposition home or self-care (01) ==
PROVIDERS: PCP Family Medicine; Referring Provider Family Medicine; Visit Provider Family Medicine
DX: R53.83 Other fatigue (principal); R73.01 Impaired fasting glucose; R63.1 Polydipsia; R06.00 Dyspnea, unspecified
CPT/HCPCS: 36415; 80053; 82550; 83036; 84443; 85025; 85652

== ENCOUNTER → 2023-01-22 | Outpatient (CLI) | payer MEDICARE, OTHER, SELFPAY ==
[2023-01-22 15:27] LABS: Absolute Lymphocyte Count 0.63 X10^3/uL (0.83-4.51); Absolute Neutrophil Count 1.9 X10^3/uL (2.0-7.7); Eosinophil# 0.04 X10^3/uL; Eosinophils% 1.4 % (0-5); Hematocrit 34.9 % (40-54); Hemoglobin 11.2 g/dL (13.0-16.5); Lymphocyte # 0.63 X10^3/ul (0.83-4.51); Lymphocyte % 21.7 % (19-41); Mean Corp Hgb Conc 32.1 g/dL (32-36); Mean Corpuscular Hgb 29.2 pg (27.0-32.0); Mean Corpuscular Volume 90.9 fL (80-94); Monocyte# 0.28 X10^3/uL; Monocyte% 9.7 % (0-10); NRBC Flagged by Analyzer 0 % (0-5); Neutrophil # 1.91 X10^3/uL (2.7-7.7); Neutrophil % 65.8 % (47-70); Platelet Count 106 K/mm3 (150-450); RBC Distribution Width CV 16.5 % (11.6-14.6); RBC Distribution Width SD 52.9 fl (35.1-43.9); Red Blood Count 3.84 M/mm3 (4.6-6.2); White Blood Count 2.9 K/mm3 (4.4-11.0)
[2023-01-22 15:57] LABS: ALB/GLOB Ratio 0.8 RATIO (0.9-2.4); AST(SGOT) 30 U/L (15-37); Alanine Aminotransfer ALT/SGPT 41 U/L (16-61); Albumin, Serum 3.1 g/dL (3.2-5.0); Alkaline Phosphatase 58 U/L (45-117); Anion Gap 5 (5-15); BUN 8 mg/dL (7-18); BUN/Creat Ratio 11.5 RATIO (10-20); Calcium,Total 9.2 mg/dL (8.5-10.1); Chloride 104 mmol/L (98-107); EST Glomerular Filtration Rate 119 mL/min (>60); Est Glom Filt Rate - Afr Amer 144 mL/min (>60); Glucose 102 mg/dL (74-106); Potassium 3.7 mmol/L (3.5-5.1); Protein, Total 7.1 g/dL (6.4-8.2); Sodium Level 134 mmol/L (136-145)
== END | disposition home or self-care (01) ==
PROVIDERS: PCP Family Medicine; Visit Provider Family Medicine
DX: G71.11 Myotonic muscular dystrophy (principal); D69.6 Thrombocytopenia, unspecified; R19.7 Diarrhea, unspecified; E80.6 Other disorders of bilirubin metabolism
CPT/HCPCS: 36415; 80053; 85025

== ENCOUNTER → 2023-01-29 | Outpatient (CLI) | payer MEDICARE, OTHER, SELFPAY ==
[2023-01-29 13:07] LABS: Absolute Lymphocyte Count 1.05 X10^3/uL (0.83-4.51); Absolute Neutrophil Count 1.3 X10^3/uL (2.0-7.7); Basophil# 0.01 X10^3/uL; Basophil% 0.3 % (0-1); Eosinophil# 0.03 X10^3/uL; Hematocrit 33.9 % (40-54); Hemoglobin 10.8 g/dL (13.0-16.5); Lymphocyte # 1.05 X10^3/ul (0.83-4.51); Lymphocyte % 36.1 % (19-41); Mean Corp Hgb Conc 31.9 g/dL (32-36); Mean Corpuscular Hgb 29.1 pg (27.0-32.0); Mean Corpuscular Volume 91.4 fL (80-94); Monocyte% 13.7 % (0-10); NRBC Flagged by Analyzer 0 % (0-5); Neutrophil # 1.34 X10^3/uL (2.7-7.7); Neutrophil % 46.2 % (47-70); Platelet Count 101 K/mm3 (150-450); RBC Distribution Width CV 16.5 % (11.6-14.6); RBC Distribution Width SD 53.7 fl (35.1-43.9); Red Blood Count 3.71 M/mm3 (4.6-6.2); White Blood Count 2.9 K/mm3 (4.4-11.0)
[2023-01-29 13:16] LABS: Color, Urine Yellow (Yellow); Glucose, Dipstick Normal (Normal); Ketone-Dipstick Negative (Negative); Leukocyte Esterase-Dipstick 25 /ul (Negative); Nitrite-Dipstick Negative (Negative); Occult Blood-Urine Negative /ul (Negative); Protein-Dipstick 15 mg/dl (Negative); Specific Gravity, Urine 1.015 (1.002-1.030); Urine Bilirubin Dipstick Negative (Negative); Urine Clarity Sl. Cloudy (Clear); Urine Urobilinogen Normal (Normal)
[2023-02-05 13:19] LABS: Pathologist Review Reviewed
== END | disposition home or self-care (01) ==
LOC: LABSPEC 09:52 → BFHLAB 10:06
PROVIDERS: PCP Family Medicine; Visit Provider Family Medicine
DX: G71.11 Myotonic muscular dystrophy (principal); D69.6 Thrombocytopenia, unspecified; R19.7 Diarrhea, unspecified; E80.6 Other disorders of bilirubin metabolism; D64.9 Anemia, unspecified
CPT/HCPCS: 36415; 81002; 83630; 85025; 87177; 87209; 87493

== ENCOUNTER → 2023-02-14 | Outpatient (CLI) | payer MEDICARE, OTHER, SELFPAY ==
[2023-02-14 15:22] LABS: Absolute Lymphocyte Count 1.24 X10^3/uL (0.83-4.51); Absolute Neutrophil Count 1.4 X10^3/uL (2.0-7.7); Basophil# 0.02 X10^3/uL; Basophil% 0.6 % (0-1); Eosinophil# 0.03 X10^3/uL; Eosinophils% 0.9 % (0-5); Hematocrit 38.6 % (40-54); Hemoglobin 11.9 g/dL (13.0-16.5); Immature Platelet Fraction 15.7 % (1.0-7.9); Lymphocyte # 1.24 X10^3/ul (0.83-4.51); Mean Corp Hgb Conc 30.8 g/dL (32-36); Mean Corpuscular Volume 93.9 fL (80-94); Mean Platelet Vol. 12.8 fl (6.2-12.0); Monocyte# 0.46 X10^3/uL; Monocyte% 14.5 % (0-10); NRBC Flagged by Analyzer 0 % (0-5); Neutrophil % 44.1 % (47-70); Platelet Count 120 K/mm3 (150-450); RBC Distribution Width CV 15.6 % (11.6-14.6); RET-HE 31.9 pg (30-35); Red Blood Count 4.11 M/mm3 (4.6-6.2); Reticulocyte Count 2.25 % (0.5-1.5); White Blood Count 3.2 K/mm3 (4.4-11.0)
[2023-02-14 15:50] LABS: ALB/GLOB Ratio 0.8 RATIO (0.9-2.4); AST(SGOT) 21 U/L (15-37); Alanine Aminotransfer ALT/SGPT 26 U/L (16-61); Albumin, Serum 3.4 g/dL (3.2-5.0); Alkaline Phosphatase 69 U/L (45-117); Anion Gap 6 (5-15); BUN 10 mg/dL (7-18); BUN/Creat Ratio 14.5 RATIO (10-20); Calcium,Total 9.2 mg/dL (8.5-10.1); Chloride 104 mmol/L (98-107); Creatinine, Serum 0.69 mg/dL (0.70-1.30); EST Glomerular Filtration Rate 121 mL/min (>60); Est Glom Filt Rate - Afr Amer 146 mL/min (>60); Globulin 4.2 g/dL (2.2-4.2); Glucose 90 mg/dL (74-106); LDH 240 U/L (87-241); Potassium 3.7 mmol/L (3.5-5.1); Protein, Total 7.6 g/dL (6.4-8.2); Rheumatoid Factor < 10.0 IU/mL (<15); Sodium Level 136 mmol/L (136-145)
== END | disposition home or self-care (01) ==
LOC: BFHLAB 13:09
PROVIDERS: PCP Family Medicine; Referring Provider Family Medicine; Visit Provider Family Medicine
DX: D61.818 Other pancytopenia (principal); R53.83 Other fatigue; M25.532 Pain in left wrist
CPT/HCPCS: 36415; 80053; 82746; 83615; 84550; 85025; 85045; 86431

== ENCOUNTER → 2023-03-06 | Outpatient (CLI) | payer MEDICARE, OTHER, SELFPAY ==
[2023-03-06 12:13] LABS: Absolute Neutrophil Count 1.2 X10^3/uL (2.0-7.7); Basophil# 0.02 X10^3/uL; Basophil% 0.6 % (0-1); Eosinophil# 0.06 X10^3/uL; Eosinophils% 1.8 % (0-5); Hematocrit 39.6 % (40-54); Hemoglobin 12.9 g/dL (13.0-16.5); Lymphocyte % 43.9 % (19-41); Mean Corp Hgb Conc 32.6 g/dL (32-36); Mean Corpuscular Hgb 29.2 pg (27.0-32.0); Mean Corpuscular Volume 89.6 fL (80-94); Monocyte# 0.61 X10^3/uL; Monocyte% 17.8 % (0-10); NRBC Flagged by Analyzer 0 % (0-5); Neutrophil # 1.16 X10^3/uL (2.7-7.7); Neutrophil % 33.9 % (47-70); Platelet Count 103 K/mm3 (150-450); RBC Distribution Width CV 14.9 % (11.6-14.6); RBC Distribution Width SD 47.9 fl (35.1-43.9); Red Blood Count 4.42 M/mm3 (4.6-6.2); White Blood Count 3.4 K/mm3 (4.4-11.0)
== END | disposition home or self-care (01) ==
LOC: BFHLAB 10:08
PROVIDERS: PCP Family Medicine; Visit Provider Family Medicine
DX: D61.818 Other pancytopenia (principal)
CPT/HCPCS: 36415; 85025

== ENCOUNTER → 2023-12-15 | Outpatient (CLI) | payer MEDICARE, OTHER, SELFPAY ==
[2023-12-15 12:18] LABS: AST(SGOT) 31 U/L (15-37); Alanine Aminotransfer ALT/SGPT 55 U/L (16-61); Albumin, Serum 3.7 g/dL (3.2-5.0); Alkaline Phosphatase 64 U/L (45-117); Anion Gap 8 (5-15); BUN 19 mg/dL (7-18); BUN/Creat Ratio 22.8 RATIO (10-20); CRP 3.94 mg/L (0.0-3.0); Calcium,Total 9.3 mg/dL (8.5-10.1); Chloride 105 mmol/L (98-107); Cholesterol 153 mg/dL (200); Creatinine, Serum 0.83 mg/dL (0.70-1.30); EST Glomerular Filtration Rate 97 mL/min (>60); Est Glom Filt Rate - Afr Amer 117 mL/min (>60); Ferritin 434 ng/mL (26-388); Globulin 3.6 g/dL (2.2-4.2); Glucose 95 mg/dL (74-106); High Density Lipoprotein 51 mg/dL; Iron 119 ug/dL (65-175); Iron Binding Capacity,Total 356 ug/dL (250-450); LDH 250 U/L (87-241); PERCENT IRON SATURATION 33.4 % (15.0-55.0); PSA,Total - Annual Screen 1.73 ng/mL (0.00-4.00); Potassium 3.8 mmol/L (3.5-5.1); Protein, Total 7.3 g/dL (6.4-8.2); Sodium Level 137 mmol/L (136-145); Triglycerides 87 mg/dL; Very Low Density Lipoprotein 17 mg/dL (5-40)
[2023-12-15 12:22] LABS: Vitamin B12 > 2000 pg/mL (211-911)
[2023-12-15 15:26] LABS: Absolute Lymphocyte Count 1.16 X10^3/uL (0.83-4.51); Absolute Neutrophil Count 1.7 X10^3/uL (2.0-7.7); Basophil# 0.01 X10^3/uL; Basophil% 0.3 % (0-1); Eosinophil# 0.06 X10^3/uL; Eosinophils% 1.7 % (0-5); Hematocrit 43.9 % (40-54); Hemoglobin 14.3 g/dL (13.0-16.5); Lymphocyte # 1.16 X10^3/ul (0.83-4.51); Lymphocyte % 32.8 % (19-41); Mean Corp Hgb Conc 32.6 g/dL (32-36); Mean Corpuscular Hgb 28.4 pg (27.0-32.0); Mean Corpuscular Volume 87.1 fL (80-94); Monocyte# 0.52 X10^3/uL; Monocyte% 14.7 % (0-10); NRBC Flagged by Analyzer 0 % (0-5); Neutrophil # 1.72 X10^3/uL (2.7-7.7); Neutrophil % 48.5 % (47-70); POSITIVE COUNT YES; Platelet Count 79 K/mm3 (150-450); RBC Distribution Width CV 13.9 % (11.6-14.6); RBC Distribution Width SD 43.7 fl (35.1-43.9); Red Blood Count 5.04 M/mm3 (4.6-6.2); White Blood Count 3.5 K/mm3 (4.4-11.0)
[2023-12-15 15:46] LABS: Differential Indicated SCAN CRITERIA MET
[2023-12-15 16:27] LABS: Erythrocyte Sedimentation Rate 1 mm/hr (0-20)
[2023-12-15 17:07] LABS: Platelet Estimate MOD DEC (ADEQ); Red Cell Morphology NORM C+C NORMAL (NORM C&C)
== END | disposition home or self-care (01) ==
LOC: MTLAB 10:09
PROVIDERS: PCP Family Medicine; Referring Provider Internal Medicine Medical Oncology; Visit Provider Internal Medicine Medical Oncology
DX: I10 Essential (primary) hypertension (principal); D61.818 Other pancytopenia; Z12.5 Encounter for screening for malignant neoplasm of prostate; D69.6 Thrombocytopenia, unspecified; D72.819 Decreased white blood cell count, unspecified
CPT/HCPCS: 36415; 80053; 80061; 82607; 82728; 83540; 83550; 83615; 84153; 85025; 85652; 86140; G0103

== ENCOUNTER → 2024-03-19 | Outpatient (CLI) | payer MEDICARE, OTHER, SELFPAY ==
--- NOTE | 2024-03-19 08:45 | CDU_ITS ---
Reason For Study: Pain Rt. Velocities/BP Lt. Velocities/BP Prox CCA 78.1/16.7 cm/sec. Prox CCA 65.8/16.7 cm/sec. Mid CCA 69.5/14.2 cm/sec. Mid CCA 76.9/24.1 cm/sec. Dist CCA 86.7/21.6 cm/sec. Dist CCA 101.4/25.3 cm/sec. Prox ICA 56.7/12.7 cm/sec. Prox ICA 59.1/17.6 cm/sec. Mid ICA 94.2/24.8 cm/sec. Mid ICA 66.7/18.5 cm/sec. Dist ICA 91.8/32.1 cm/sec. Dist ICA 73.3/28.9 cm/sec. Rt. ICA/CCA = 1.4. Lt. ICA/CCA = 1.0. Prox ECA 68.8/8.7 cm/sec. Prox ECA 82.0/14.7 cm/sec. Rt. Vert. 31.1/10.1 cm/sec. Lt. Vert. 28.5/8.4 cm/sec. Right Extracranial There is homogeneous, smooth atherosclerotic plaque noted in the right common carotid artery. There is heterogeneous, irregular atherosclerotic plaque noted in the right internal carotid artery. There is intimal thickening but no significant atherosclerotic plaque noted in the right external carotid artery. Antegrade flow is noted in the right vertebral artery. Left Extracranial There is homogeneous, smooth atherosclerotic plaque noted in the left common carotid artery. There is heterogeneous, irregular atherosclerotic plaque noted in the left internal carotid artery. There is heterogeneous, irregular atherosclerotic plaque noted in the left external carotid artery. Antegrade flow is noted in the left vertebral artery. Procedure Carotid Duplex [id number]. This is a Carotid Duplex examination using B-mode, color flow and specral Doppler. The exam was diagnostic. Exam performed in department. VL/Carotid Duplex Ultrasound Interpretation Summary Mild (<50%) stenosis right extracranial internal carotid. Mild (<50%) stenosis left extracranial internal carotid. Patent and antegrade vertebrals bilaterally. Ordering Physician: Idris Castillo Referring Physician: Idris Castillo Performed By: Raj Navarro RVT
--- NOTE | 2024-03-19 08:46 | ECHOD_ITS ---
Reason For Study: LIGHT HEADEDNESS, DIZZINESS Procedure This was a 2D Doppler, Color Flow transthoracic echocardiogram. The study was technically difficult. Exam performed in department. Left Ventricle Normal LV size. The estimated ejection fraction is 55 %. No evidence for diastolic dysfunction. No regional wall motion abnormalities noted. Right Ventricle Normal RV size. Normal systolic function. Atria The left and right atria are normal. No doppler evidence for ASD. Mitral Valve There is no mitral valve stenosis. No mitral valve insufficiency. Tricuspid Valve There is no tricuspid stenosis. No tricuspid valve insufficiency. Aortic Valve Trisinus/trileaflet aortic valve. Aortic sclerosis, no stenosis. No aortic valve insufficiency. Pulmonic Valve There is no pulmonic valvular stenosis. No pulmonic valve insufficiency. Great Vessels Normal aortic root. Pericardium/Pleural No pericardial effusion. Medication 22 gauge I.V. with prn adaptor inserted into right arm. Diluted definity 2ml given slow IV push to enhance endocardial definition. MMode/2D Measurements & Calculations LVIDd: 3.7 cm IVSd: 0.99 cm Ao root diam: 3.3 cm LVIDs: 2.6 cm LVPWd: 0.94 cm RVDd: 3.4 cm FS: 29.0 % LAV(MOD-bp): 47.8 ml LVAd ap4: 32.3 cm2 SV(MOD-sp4): 51.2 ml LAV(MOD-bp) Indexed: 21.3 ml/m2 LVLd ap4: 8.5 cm SI(MOD-sp4): 22.8 ml/m2 LAV(MOD-sp2): 48.7 ml EDV(MOD-sp4): 100.4 ml LAV(MOD-sp4): 47.1 ml EDV(sp4-el): 104.9 ml LVAs ap4: 20.1 cm2 LVLs ap4: 6.6 cm ESV(MOD-sp4): 49.2 ml ESV(sp4-el): 52.0 ml EF(MOD-sp4): 51.0 % EF(sp4-el): 50.4 % SV(sp4-el): 52.9 ml LA A4 area: 17.5 cm2 LA dimension(2D): 3.0 cm RA A4 area: 17.3 cm2 TAPSE: 1.8 cm Time Measurements MV dec time: 0.20 sec Doppler Measurements & Calculations MV E max cory: 60.5 cm/sec Lat Peak E' Cory: 10.4 cm/sec Med Peak E' Cory: 10.8 cm/sec MV A max cory: 81.3 cm/sec E/E' lat: 5.8 E/E' med: 5.6 MV E/A: 0.74 Ao V2 max: 151.2 cm/sec LV V1 max: 108.2 cm/sec PA V2 max: 120.6 cm/sec Ao max P.2 mmHg LV V1 max P.7 mmHg Ao V2 mean: 114.1 cm/sec Ao mean P.8 mmHg Ao V2 VTI: 37.1 cm TR max cory: 227.6 cm/sec TR max P.7 mmHg ECHO/Echo Complete Interpretation Summary The estimated ejection fraction is 55 %. No evidence for diastolic dysfunction. Ordering Physician: Idris Castillo Referring Physician: Idris Castillo Performed By: Lakeshia Cardozo RDCS
== END | disposition home or self-care (01) ==
LOC: CVS 08:39
PROVIDERS: PCP Family Medicine; Referring Provider Family Medicine; Visit Provider Family Medicine
DX: I35.9 Nonrheumatic aortic valve disorder, unspecified (principal); R42 Dizziness and giddiness; R06.09 Other forms of dyspnea
CPT/HCPCS: 93306; 93880; Q9957; A4216

== ENCOUNTER → 2024-09-15 | Outpatient (CLI) | payer MEDICARE, OTHER, SELFPAY ==
[2024-09-15 10:32] LABS: Erythrocyte Sedimentation Rate 1 mm/hr (0-20)
[2024-09-15 10:39] LABS: Absolute Lymphocyte Count 1.02 X10^3/uL (0.83-4.51); Absolute Neutrophil Count 1.7 X10^3/uL (2.0-7.7); Basophil# 0.01 X10^3/uL; Basophil% 0.3 % (0-1); Eosinophil# 0.05 X10^3/uL; Eosinophils% 1.5 % (0-5); Hematocrit 42.1 % (40-54); Hemoglobin 14.1 g/dL (13.0-16.5); Lymphocyte # 1.02 X10^3/ul (0.83-4.51); Lymphocyte % 30.8 % (19-41); Mean Corp Hgb Conc 33.5 g/dL (32-36); Mean Corpuscular Hgb 28.3 pg (27.0-32.0); Mean Corpuscular Volume 84.4 fL (80-94); Monocyte# 0.46 X10^3/uL; Monocyte% 13.9 % (0-10); NRBC Flagged by Analyzer 0 % (0-5); Neutrophil # 1.71 X10^3/uL (2.7-7.7); Neutrophil % 51.7 % (47-70); POSITIVE COUNT YES; Platelet Count 75 K/mm3 (150-450); RBC Distribution Width CV 14.9 % (11.6-14.6); Red Blood Count 4.99 M/mm3 (4.6-6.2); White Blood Count 3.3 K/mm3 (4.4-11.0)
[2024-09-15 11:43] LABS: ALB/GLOB Ratio 1.6 RATIO (0.9-2.4); AST(SGOT) 32 U/L (<=37); Alanine Aminotransfer ALT/SGPT 34 U/L (<=46); Albumin, Serum 4.3 g/dL (3.4-4.8); Alkaline Phosphatase 67 U/L (40-129); Anion Gap 12 (5-15); BUN 13 mg/dL (4-19); BUN/Creat Ratio 14.4 RATIO (10-20); Carbon Dioxide 21.2 mmol/L (21.0-32.0); Chloride 104 mmol/L (98-108); Creatinine, Serum 0.91 mg/dL (0.70-1.20); EST Glomerular Filtration Rate 90 (>60); Globulin 2.7 g/dL (2.2-4.2); Glucose 100 mg/dL (70-99); Potassium 3.9 mmol/L (3.3-5.1); Sodium Level 137 mmol/L (133-145); Total Bilirubin 0.64 mg/dL (0.00-1.30)
[2024-09-15 12:10] LABS: CRP 4.37 mg/L (0.0-3.0); Iron 72 ug/dL (65-175); Iron Binding Capacity,Total 310 ug/dL (250-450); Iron Binding Capacity,Unsat 238 ug/dL (228-428)
[2024-09-15 12:27] LABS: Absolute Lymphocyte Count 0.97 X10^3/uL (0.83-4.51); Absolute Neutrophil Count 1.6 X10^3/uL (2.0-7.7); Basophil# 0.01 X10^3/uL; Basophil% 0.3 % (0-1); Eosinophil# 0.07 X10^3/uL; Eosinophils% 2.3 % (0-5); Hematocrit 41.9 % (40-54); Hemoglobin 14.2 g/dL (13.0-16.5); Lymphocyte # 0.97 X10^3/ul (0.83-4.51); Lymphocyte % 31.6 % (19-41); Mean Corp Hgb Conc 33.9 g/dL (32-36); Mean Corpuscular Hgb 28.2 pg (27.0-32.0); Mean Corpuscular Volume 83.3 fL (80-94); NRBC Flagged by Analyzer 0 % (0-5); Neutrophil # 1.57 X10^3/uL (2.7-7.7); Neutrophil % 51.2 % (47-70); POSITIVE COUNT YES; Platelet Count 76 K/mm3 (150-450); RBC Distribution Width CV 14.9 % (11.6-14.6); RBC Distribution Width SD 44.1 fl (35.1-43.9); Red Blood Count 5.03 M/mm3 (4.6-6.2); White Blood Count 3.1 K/mm3 (4.4-11.0)
[2024-09-15 12:31] LABS: LDH 233 U/L (87-241)
[2024-09-15 12:37] LABS: Differential Indicated SCAN CRITERIA MET
[2024-09-15 13:00] LABS: Ferritin 609 ng/mL (37-417); Vitamin B12 2978 pg/mL (180-914)
[2024-09-15 13:06] LABS: Platelet Estimate MOD DEC (ADEQ)
--- OUTSIDE RECORDS SUMMARY | 2024-09-15 18:10 | XMS RPT_ITS | CCD ---
Author Organization [facility] Care Team Providers Care Boilerhouse Mechanic Name Role Phone Idris Castillo Referring Unavailable Mick Singh Attending Unavailable Anna, Idris Primary Care Unavailable Carolyn WHEEL SHOP SUPERVISOR, Danica Attending Unavailable Anna, Idris Primary Care Unavailable Anna, Idris Referring Unavailable Anna, Idris Referring Unavailable Prah, Zelalem Attending Unavailable Anna, Idris Primary Care Unavailable Anna, Idris Consulting Unavailable Anna, Idris Primary Care Unavailable Prabrook, Zelalem Referring Unavailable Prah, Zelalem Attending Unavailable Anna, Idris Attending Unavailable Anna, dIris Primary Care Unavailable Anna, Idris Referring Unavailable Anna, Idris Primary Care Unavailable Prabrook, Zelalem Referring Unavailable Prabrook, Zelalem Attending Unavailable Anna, Idris Primary Care Unavailable Prabrook, Zelalem Attending Unavailable Mony Miguel Attending Unavailabl e Anna, Idris Primary Care Unavailable Dr. Idris Castillo DO Primary Care Provider [phone] Dr. Zelalem Magdaleno MD Attending Provider [phone] Dr. Zelalem Magdaleno MD Referring Provider Dr. Idris Castillo DO Referring Provider Medications Current Medications Medication Drug Class(es) Dates Sig (Normalized) Sig (Original) acetaminophen 500 mg oral tablet (8 sources) Start: 08-20-2017 take 2 tablets by mouth every eight hours Acetaminophen 500 MG tablet Active 1000 mg PO EVERY 8 HOURS 90 August 20, 2017 12:00am Start: 08-20-2017 take 1000 mg by mout h every eight hours Acetaminophen Active 1000 MG PO EVERY 8 HOURS 90 August 19, 2017 11:00pm Ashwagandha Extract 120 mg capsule (1 source) Start: 03-17-2024 take 1 mg by mouth once daily Ashwagandha Extract 120 mg capsule Active mg PO DAILY March 17, 2024 1:00am busPIRone hydrochloride 7.5 mg oral tablet (1 source) Start: 03-17-2024 take 1 tablet by mouth twice daily Buspirone 7.5 mg tablet Active 7.5 mg PO TWICE A DAY March 17, 2024 1:00am DULoxetine 60 mg delayed release oral capsule (3 sources) Serotonin and Norepinephrine Reuptake Inhibitor Start: 03-17-2024 take 1 capsule by mouth twice daily Duloxetine 60 mg capsule,delayed release(DR/EC) Active 60 mg PO TWICE A DAY March 17, 2024 10:52am Start: 03-19-2023 End: 03-17-2024 take 1 capsule by mouth once daily Duloxetine 30 mg capsule,delayed release(DR/EC) Discontinued 30 mg PO DAILY March 19, 2023 1:00am March 17, 2024 10:52am Start: 03-19-2023 End: 03-17-2024 take 1 capsule by mouth once daily Duloxetine 60 mg capsule,delayed release(DR/EC) Discontinued 60 mg PO DAILY March 19, 2023 1:00am March 17, 2024 10:53am ELDERBERRY FRUIT (1 source) Start: 03-19-2023 Elderberry Fru it 350 mg capsule Active mg PO March 19, 2023 1:00am ibuprofen 200 mg oral tablet (1 source) Nonsteroidal Anti-inflammatory Drug Start: 03-19-2023 take 1 tablet by mouth every six hours as needed Ibuprofen (Advil) 200 mg tablet Active 200 mg PO EVERY 6 HOURS as needed March 19, 2023 1:00am latanoprost 0.05 mg/ml ophthalmic solution (1 source) Prostaglandin Analog Start: 03-19-[address] 0.005 % drops Active 1 NMA OPHTHALMIC DAILY March 19, 2023 1:00am mecobalamin 1 mg chewable tablet (2 sources) Start: 12-17-2023 take 1 tablet by mouth every week Mecobalamin (Vitamin B12) 1,000 mcg tablet,chewable Active 1000 ug PO EVERY WEEK December 17, 2023 9:39am Start: 03-19-2023 End: 12-17-2023 take 3 tablets by mouth once daily Mecobalamin (Vitamin B12) 1,000 mcg tablet,chewable Discontinued 3000 ug PO DAILY March 19, 2023 1:00am December 17, 2023 9:39am tamsulosin hydrochloride 0.4 mg oral capsule (1 source) alpha-Adrenergic Jaswinder Start: 03-19-2023 take 1 capsule by mouth once daily Tamsulosin 0.4 mg capsule Active 0.4 mg PO DAILY March 19, 2023 1:00am Completed/Discontinued Medications Medication Drug Class(es) Dates Sig (Normalized) Sig (Original) aspirin 325 mg oral tablet (8 sources) Platelet Aggregation Inhibitor, Nonsteroidal Anti-inflammatory Drug Start: 08-20-2017 End: 03-19-2023 take 1 tablet by mouth twice daily at mealtime Aspirin 325 MG tablet Discontinued 325 mg PO TWICE DAILY WITH MEALS 60 August 20, 2017 12:00am March 19, 2023 9:18am morphine sulfate 15 mg extended release oral tablet (8 sources) Opioid Agonist Start: 08-20-2017 End: 03-19-2023 take 1 tablet by mouth twice daily Morphine 15 MG tablet Discontinued 15 mg PO TWICE A DAY 14 7 August 20, 2017 12:00am March 19, 2023 9:18am oxyCODONE hydrochloride 5 mg oral tablet (8 sources) Opioid Agonist Start: 08-20-2017 End: 03-19-2023 take 5-10 mg by mouth every six hours as needed for pain Oxycodone 5 MG tablet Discontinued 5 - 10 mg PO EVERY 6 HOURS NEEDED as needed for Mod-Severe Pain (4-10/10) 60 7 August 20, 2017 8:14am March 19, 2023 9:18am Viteyes Optic Nerve Supplement (1 source) Start: 03-19-2023 End: 12-17-2023 Viteyes Optic Nerve Supplement Discontinued PO March 19, 2023 1:00am December 17, 2023 9:36am Problems Problem Classification Problem Date Documented Da te Episodic/Chronic Coagulation and hemorrhagic disorders (4 sources) Thrombocytopenia, unspecified; Translations: [Thrombocytopenic disorder] Onset: 03-17-2024 12-17-2023 Chronic Comment on above: Asymptomatic. Deficiency and other anemia (1 source) Other pancytopenia; Translations: [Other pancytopenia] Onset: 09-10-2024 Chronic Deficiency and other anemia (1 source) Acquired pancytopenia; Translations: [Other pancytopenia] 03-25-2023 Chronic Comment on above: Mild leukopenia with neutropenia and mild anemia resolved, mild thrombocytopenia. Deficiency and other anemia (1 source) Anemia; Translations: [Anemia, unspecified] 03-25-2023 Episodic Diseases of white blood cells (5 sources) Decreased white blood cell count, unspecified; Translations: [Neutropenia, unspecified] Onset: 12-17-2023 09-15-2024 Chronic Comment on above: Leukopenia with mono cytosis Essential hypertension (1 source) Essential (primary) hypertension; Translations: [Essential (primary) hypertension] Onset: 01-04-2024 Chronic Heart valve disorders (1 source) Nonrheumatic aortic valve disorder, unspecified; Translations: [Nonrheumatic aortic valve disorder, unspecified] Onset: 04-22-2024 Chronic Malaise and fatigue (6 sources) Asthenia; Translations: [Weakness] 12-27-2022 Episodic Results Test Name Value Interpretation Reference Range Facility Absolute lymphocyte countOrd ered By: [facility] on 09-15-2024 Lymphocytes Auto (Unsp spec) [#/Vol] 1.02 10*3/uL 0.83-4.51 [facility] Absolute neutrophil countOrd ered By: [facility] on 09-15-2024 Neutrophils (Bld) [#/Vol] 1.7 10*3/uL Low 2.0-7.7 [facility] Automated lymphocyte count a s percentage of total leukocytesOrdered By: [facility] on 09-15-2024 Lymphocytes/100 WBC Auto (Unsp spec) 30.8 % 19-41 [facility] Basophil percentageOrdered B y: [facility] on 09-15-2024 Basophils/100 WBC (Bld) 0.3 % 0-1 [facility] Eosinophil percentageOrdered By: [facility] on 09-15-2024 Eosinophils/100 WBC (Bld) 1.5 % 0-5 [facility] Erythrocyte distribution wid th ratioOrdered By: [facility] on 09-15-2024 Erythrocyte distribution width (RBC) [Ratio] 14.9 % High 11.6-14.6 [facility] Erythrocyte distribution wid th standard deviationOrdered By: [facility] on 09-15-2024 Erythrocyte distribution width (RBC) [Ratio] 44.0 fl High 35.1-43.9 [facility] Erythrocyte sedimentation ra teOrdered By: Zelalem Magdaleno on 09-15-2024 ESR (Bld) [Velocity] 1 mm/h 0-20 [facility] Hematocrit Auto (Bld) [Volum e fraction]Ordered By: Zelalem Magdaleno on 09-15-2024 Hematocrit (Bld) [Volume fraction] 42.1 % 40-54 [facility] Hemoglobin measurementOrdere d By: Zelalem Magdaleno on 09-15-2024 Hemoglobin (Bld) [Mass/Vol] 14.1 g/dL 13.0-16.5 [facility] Immature granulocytes/100 WB C Auto (Bld)Ordered By: Zelalem Magdaleno on 09-15-2024 Immature granulocytes/100 WBC (Bld) 1.800 % High 0.0-0.9 [facility] Comment on above: IG% - Immature Granu locytes (promyelocytes, myelocytes and metamyelocytes) > 1% indicates that a LEFT SHIFT is Present. MCV (mean corpuscular volume ) determinationOrdered By: Zelalem Magdaleno on 09-15-2024 MCV (RBC) [Entitic vol] 84.4 fL 80-94 [facility] Mean corpuscular hemoglobin (MCH) determinationOrdered By: Zelalem Magdaleno on 09-15-2024 MCH (RBC) [Entitic mass] 28.3 pg 27.0-32.0 [facility] Mean corpuscular hemoglobin concentration (MCHC) determinationOrdered By: Zelalem Magdaleno on 09-15-2024 MCHC (RBC) [Mass/Vol] 33.5 g/dL 32-36 [facility] Monocyte percentageOrdered B y: Zelalem Magdaleno on 09-15-2024 Monocytes/100 WBC (Bld) 13.9 % High 0-10 [facility] Neutrophil percentageOrdered By: Zelalem Magdaleno on 09-15-2024 Neutrophils/100 WBC (Bld) 51.7 % 47-70 [facility] Nucleated red blood cell per centageOrdered By: Zelalem Magdaleno on 09-15-2024 Nucleated RBC/100 WBC (Bld) [Ratio] 0 % 0-5 [facility] Platelet countOrdered By: Benita Magdaleno on 09-15-2024 Platelets (Bld) [#/Vol] 75 10*3/uL Low 150-450 [facility] RBC Auto (Bld) [#/Vol]Ordere d By: Zelalem Magdaleno on 09-15-2024 RBC (Bld) [#/Vol] 4.99 10*6/uL 4.6-6.2 [facility] White blood cell (WBC) count Ordered By: Zelalem Trejobrook on 09-15-2024 WBC (Bld) [#/Vol] 3.3 10*3/uL Low 4.4-11.[address] [facility] Carotid Duplex Ultrasoundon 03-19-2024 Carotid Duplex Ultrasound [facility] [address] [place] [address] Carotid Duplex Ultrasound 03/19/24 0913 MR#: [id number] Acct: [id number] Name: CYN MC Rep #: [id number] : 1950 73 From: Mick Singh MD Attending Dr: Dr. Idris Castillo DO Status: REG CLI Ordering Dr: Idris Castillo DO Date: 03/19/24 Location: [facility] Sex: M C Admitted: Reason For Study: Pain Rt. Velocities/BP Lt. Velocities/BP Prox CCA 78.1/16.7 cm/sec. Prox CCA 65.8/16.7 cm/sec. Mid CCA 69.5/14.2 cm/sec. Mid CCA 76.9/24.1 cm/sec. Dist CCA 86.7/21.6 cm/sec. Dist CCA 101.4/25.3 cm/sec. Prox ICA 56.7/12.7 cm/sec. Prox ICA 59.1/17.6 cm/sec. Mid ICA 94.2/24.8 cm/sec. Mid ICA 66.7/18.5 cm/sec. Dist ICA 91.8/32.1 cm/sec. Dist ICA 73.3/28.9 cm/sec. Rt. ICA/CCA = 1.4. Lt. ICA/CCA = 1.0. Prox ECA 68.8/8.7 cm/sec. Prox ECA 82.0/14.7 cm/sec. Rt. Vert. 31.1/10.1 cm/sec. Lt. Vert. 28.5/8.4 cm/sec. Right Extracranial There is homogeneous, smooth atherosclerotic plaque noted in the right common carotid artery. There is heterogeneous, irregular atherosclerotic plaque noted in the right internal carotid artery. There is intimal thickening but no significant atherosclerotic plaque noted in the right external carotid artery. Antegrade flow is noted in the right vertebral artery. Left Extracranial There is homogeneous, smooth atherosclerotic plaque noted in the left common carotid artery. There is heterogeneous, irregular atherosclerotic plaque noted in the left internal carotid artery. There is heterogeneous, irregular atherosclerotic plaque noted in the left external carotid artery. Antegrade flow is noted in the left vertebral artery. Procedure Carotid Duplex 56406. This is a Carotid Duplex examination using B-mode, color flow and specral Doppler. The exam was diagnostic. Exam performed in department. VL/Carotid Duplex Ultrasound Interpretation Summary Mild (<50%) stenosis right extracranial internal carotid. Mild (<50%) stenosis left extracranial internal carotid. Patent and antegrade vertebrals bilaterally. ___ Ordering Physician: Idris Castillo Referring Physician: Idris Castillo Performed By: Raj Navarro, T 03/23/24749 Date Mick Singh MD CC: Dr. Idris Castillo DO Date Dictated: 03/19/24912 Date Transcribed: 03/23/24749 Pharmacy Intern: Signed Normal [facility] Echo Completeon 03-19-2024 Echo Complete [facility] [address] [place] [address] Echo Complete 03/19/24925 MR#: [id number] Acct: [id number] Name: MCCYN MORENO Rep #: [id number] : 1950 73 From: Mony Miguel MD Attending Dr: Dr. Idris Castillo, Status: REG CLI Ordering Dr: Idris Castillo DO Date: 03/19/24 Location: [facility] Sex: M C Admitted: Reason For Study: LIGHT HEADEDNESS, DIZZINESS Procedure This was a 2D Doppler, Color Flow transthoracic echocardiogram. The study was technically difficult. Exam performed in department. Left Ventricle Normal LV size. The estimated ejection fraction is 55 %. No evidence for diastolic dysfunction. No regional wall motion abnormalities noted. Right Ventricle Normal RV size. Normal systolic function. Atria The left and right atria are normal. No doppler evidence for ASD. Mitral Valve There is no mitral valve stenosis. No mitral valve insufficiency. Tricuspid Valve There is no tricuspid stenosis. No tricuspid valve insufficiency. Aortic Valve Trisinus/trileaflet aortic valve. Aortic sclerosis, no stenosis. No aortic valve insufficiency. Pulmonic Valve There is no pulmonic valvular stenosis. No pulmonic valve insufficiency. Great Vessels Normal aortic root. Pericardium/Pleural No pericardial effusion. Medication 22 gauge I.V. with prn adaptor inserted into right arm. Diluted definity 2ml given slow IV push to enhance endocardial definition. MMode/2D Measurements Calculations LVIDd: 3.7 cm IVSd: 0.99 cm Ao root diam: 3.3 cm LVIDs: 2.6 cm LVPWd: 0.94 cm RVDd: 3.4 cm FS: 29.0 % LAV(MOD-bp): 47.8 ml LVAd ap4: 32.3 cm2 SV(MOD-sp4): 51.2 ml LAV(MOD-bp) Indexed: 21.3 ml/m2 LVLd ap4: 8.5 cm SI(MOD-sp4): 22.8 ml/m2 LAV(MOD-sp2): 48.7 ml EDV(MOD-sp4): 100.4 ml LAV(MOD-sp4): 47.1 ml EDV(sp4-el): 104.9 ml LVAs ap4: 20.1 cm2 LVLs ap4: 6.6 cm ESV(MOD-sp4): 49.2 ml ESV(sp4-el): 52.0 ml EF(MOD-sp4): 51.0 % EF(sp4-el): 50.4 % SV(sp4-el): 52.9 ml LA A4 area: 17.5 cm2 LA dimension(2D): 3.0 cm RA A4 area: 17.3 cm2 TAPSE: 1.8 cm Time Measurements MV dec time: 0.20 sec Doppler Measurements Calculations MV E max cory: 60.5 cm/sec Lat Peak E' Cory: 10.4 cm/sec Med Peak E' Cory: 10.8 cm/sec MV A max cory: 81.3 cm/sec E/E' lat: 5.8 E/E' med: 5.6 MV E/A: 0.74 Ao V2 max: 151.2 cm/sec LV V1 max: 108.2 cm/sec PA V2 max: 120.6 cm/sec Ao max P.2 mmHg LV V1 max P.7 mmHg Ao V2 mean: 114.1 cm/sec Ao mean P.8 mmHg Ao V2 VTI: 37.1 cm TR max cory: 227.6 cm/sec TR max P.7 mmHg ECHO/Echo Complete Interpretation Summary The estimated ejection fraction is 55 %. No evidence for diastolic dysfunction. ___ Ordering Physician: Idris Castillo Referring Physician: Idris Castillo Performed By: Lakeshia Cardozo, MILLI 03/23/24 1357 Date Mony Miguel MD CC: Dr. Idris Castillo, Date Dictated: 03/19/24925 Date Transcribed: 03/23/241356 Pharmacy Intern: Signed Normal [facility] CBC W/Diff, Automatedon 03-07 Absolute Lymph 1.27 X10 3/uL Normal 0.83-4.51 [facility] Comment on above: Performed By: #### L 504.2610, L100.0100, L500.4050 ####[facility] [address] [place], [address] Absolute Neut 1.6 X10 3/uL Low 2.0-7.7 [facility] Comment on above: Performed By: #### L 504.2610, L100.0100, L500.4050 ####[facility] [address] [place], [address] Basophils/100 WBC (Bld) 0.3 % Normal 0-1 [facility] Comment on above: Performed By: #### L 504.2610, L100.0100, L500.4050 ####[facility] [address] [place], [address] Eosinophils/100 WBC (Bld) 1.8 % Normal 0-5 [facility] Comment on above: Performed By: #### L 504.2610, L100.0100, L500.4050 ####[facility] [address] [place], [address] Erythrocyte distribution width (RBC) [Ratio] 14.6 % Normal 11.6-14.6 [facility] Comment on above: Performed By: #### L 504.2610, L100.0100, L500.4050 ####[facility] [address] [place], [address] Hematocrit (Bld) [Volume fraction] 41.9 % Normal 40-54 [facility] Comment on above: Performed By: #### L 504.2610, L100.0100, L500.4050 ####[facility] [address] [place], [address] Hemoglobin (Bld) [Mass/Vol] 14.4 g/dL Normal 13.0-16.5 [facility] Comment on above: Performed By: #### L 504.2610, L100.0100, L500.4050 ####[facility] [address] [place], [address] IG% 1.800 High 0.0-0.9 [facility] Comment on above: Result Comment: IG% - Immature Granulocytes (promyelocytes, myelocytes and metamyelocytes) > 1% indicates that a LEFT SHIFT is Present. Performed By: #### L 504.2610, L100.0100, L500.4050 ####[facility] [address] [place], [address] Lymphocytes/100 WBC (Bld) 37.1 % Normal 19-41 [facility] Comment on above: Performed By: #### L 504.2610, L100.0100, L500.4050 ####[facility] [address] [place], [address] MCH (RBC) [Entitic mass] 28.3 pg Normal 27.0-32.0 [facility] Comment on above: Performed By: #### L 504.2610, L100.0100, L500.4050 ####[facility] [address] [place], [address] MCHC (RBC) [Mass/Vol] 34.4 g/dL Normal 32-36 [facility] Comment on above: Performed By: #### L 504.2610, L100.0100, L500.4050 ####[facility] [address] [place], [address] MCV (RBC) [Entitic vol] 82.5 fL Normal 80-94 [facility] Comment on above: Performed By: #### L 504.2610, L100.0100, L500.4050 ####[facility] [address] [place], [address] Monocytes/100 WBC (Bld) 11.7 % High 0-10 [facility] Comment on above: Performed By: #### L 504.2610, L100.0100, L500.4050 ####[facility] [address] [place], [address] Neutrophils/100 WBC (Bld) 47.3 % Normal 47-70 [facility] Comment on above: Performed By: #### L 504.2610, L100.0100, L500.4050 ####[facility] [address] [place], [address] Nucleated RBC (Bld) [#/Vol] 0 10*3/uL Normal 0-5 [facility] Comment on above: Performed By: #### L 504.2610, L100.0100, L500.4050 ####[facility] [address] [place], [address] Platelets (Bld) [#/Vol] 80 10*3/uL Low 150-450 [facility] Comment on above: Performed By: #### L 504.2610, L100.0100, L500.4050 ####[facility] [address] [place], [address] RBC (Bld) [#/Vol] 5.08 10*6/uL Normal 4.6-6.2 [facility] Comment on above: Performed By: #### L 504.2610, L100.0100, L500.4050 ####[facility] [address] [place], [address] RDW SD 42.4 fl Normal 35.1-43.9 [facility] Comment on above: Performed By: #### L 504.2610, L100.0100, L500.4050 ####[facility] [address] [place], [address] WBC (Bld) [#/Vol] 3.4 10*3/uL Low 4.4-11.[address] [facility] Comment on above: Performed By: #### L 504.2610, L100.0100, L500.4050 ####[facility] [address] [place], [address] Comprehensive Metabolic Prof ilon 03-17-2024 Albumin [Mass/Vol] 4.0 g/dL Normal 3.2-5.[address] [facility] Comment on above: Order Comment: 1 Performed By: #### L 504.2610, L100.0100, L500.4050 ####[facility] [address] [place], [address] Albumin/Globulin [Mass ratio] 1.1 {ratio} Normal 0.9-2.4 [facility] Comment on above: Order Comment: 1 Performed By: #### L 504.2610, L100.0100, L500.4050 ####[facility] [address] [place], [address] ALK P 67 U/L Normal 45-117 [facility] Comment on above: Order Comment: 1 Performed By: #### L 504.2610, L100.0100, L500.4050 ####[facility] [address] [place], [address] ALT [Catalytic activity/Vol] 36 U/L Normal 16-61 [facility] Comment on above: Order Comment: 1 Performed By: #### L 504.2610, L100.0100, L500.4050 ####[facility] [address] [place], [address] AST [Catalytic activity/Vol] 25 U/L Normal 15-37 [facility] Comment on above: Order Comment: 1 Performed By: #### L 504.2610, L100.0100, L500.4050 ####[facility] [address] [place], [address] Bilirubin [Mass/Vol] 1.00 mg/dL Normal 0.20-1.00 [facility] Comment on above: Order Comment: 1 Result Comment: For patients on eltrombopag therapy, use of Dimension Lyle TBIL is not recommended. Performed By: #### L 504.2610, L100.0100, L500.4050 ####[facility] [address] [place], [address] BUN/CRE 19.8 RATIO Normal 10-20 [facility] Comment on above: Order Comment: 1 Performed By: #### L 504.2610, L100.0100, L500.4050 ####[facility] [address] [place], [address] CA,Total 9.5 mg/dL Normal 8.5-10.1 [facility] Comment on above: Order Comment: 1 Performed By: #### L 504.2610, L100.0100, L500.4050 ####[facility] [address] [place], [address] Chloride [Moles/Vol] 107 mmol/L Normal 98-107 [facility] Comment on above: Order Comment: 1 Performed By: #### L 504.2610, L100.0100, L500.4050 ####[facility] [address] [place], [address] CO2 [Moles/Vol] 23.0 mmol/L Normal 21.0-32.0 [facility] Comment on above: Order Comment: 1 Performed By: #### L 504.2610, L100.0100, L500.4050 ####[facility] [address] [place], [address] Creatinine [Mass/Vol] 1.01 mg/dL Normal 0.70-1.30 [facility] Comment on above: Order Comment: 1 Result Comment: The validity of the calculated GFR GFRAA in patients over 70 years has not been determined. Clinical correlation is essential. Performed By: #### L 504.2610, L100.0100, L500.4050 ####[facility] [address] [place], [address] ECRCL 80.11 ml/min Normal [facility] Comment on above: Order Comment: 1 Performed By: #### L 504.2610, L100.0100, L500.4050 ####[facility] [address] [place], [address] EST GFR - AA 94 mL/min Normal >60 [facility] Comment on above: Order Comment: 1 Result Comment: Afri can Croatian GFR Calc Performed By: #### L 504.2610, L100.0100, L500.4050 ####[facility] [address] [place], [address] GAP 7 Normal 5-15 [facility] Comment on above: Order Comment: 1 Performed By: #### L 504.2610, L100.0100, L500.4050 ####[facility] [address] [place], [address] GFR/1.73 sq M.predicted among non-blacks MDRD (S/P/Bld) [Vol rate/Area] 77 mL/min/{1.73_m2} Normal >60 [facility] Comment on above: Order Comment: 1 Result Comment: Non- GFR Calc Performed By: #### L 504.2610, L100.0100, L500.4050 ####[facility] [address] [place], [address] Globulin (S) [Mass/Vol] 3.7 g/dL Normal 2.2-4.2 [facility] Comment on above: Order Comment: 1 Performed By: #### L 504.2610, L100.0100, L500.4050 ####[facility] [address] [place], [address] Glucose [Mass/Vol] 88 mg/dL Normal 74-[address] [facility] Comment on above: Order Comment: 1 Performed By: #### L 504.2610, L100.0100, L500.4050 ####[facility] [address] [place], [address] Potassium [Moles/Vol] 4.1 mmol/L Normal 3.5-5.1 [facility] Comment on above: Order Comment: 1 Performed By: #### L 504.2610, L100.0100, L500.4050 ####[facility] [address] [place], [address] Sodium [Moles/Vol] 136 mmol/L Normal 136-[address] [facility] Comment on above: Order Comment: 1 Performed By: #### L 504.2610, L100.0100, L500.4050 ####[facility] [address] [place], [address] T PROT 7.7 g/dL Normal 6.4-8.2 [facility] Comment on above: Order Comment: 1 Performed By: #### L 504.2610, L100.0100, L500.4050 ####[facility] [address] [place], [address] Urea nitrogen [Mass/Vol] 20 mg/dL High 7-18 [facility] Comment on above: Order Comment: 1 Performed By: #### L 504.2610, L100.0100, L500.4050 ####[facility] [address] [place], [address] Folates, (Folic Acid)on 03-07 FOLATES 23.20 ng/mL Normal 3.1-55.4 [facility] Comment on above: Order Comment: BIJAL Toribio ADD TO BLOOD IN LAB!! THANK YOU UNKNOWN N Performed By: #### L 506.0250, L503.0105 #### [facility] [address] [place], [address] LDHon 03-17-2024 LDH 238 U/L Normal 87-241 [facility] Comment on above: Order Comment: 1 Performed By: #### L 504.2610, L100.0100, L500.4050 ####[facility] [address] [place], [address] Oncology Visit Reporton 03-07 Oncology Visit Report [facility] [place] [facility] [address] [place] [address] OFFICE VISIT Date of Service: 03/17/24 0946 MR#: [id number] Acct: [id number] Name: CYN MC Rep #: [id number] : 1950 From: Zelalem Magdaleno MD Age/Sex: 73/M Location: [facility] [place] Status: Signed HPI Subjective Date of Service 03/17/24 Chief Complaint F/u for thrombocytopenia and leukopenia History of Present Illness 73 y.o.man with a PMH significant for Lyme disease, FLAVIA, b12 deficiency, DJD, aortic valve sclerosis who was found to be Pancytopenic January 2023 and referred to hematology for further evaluation. Has been on observation since March 2023. Comes for follow up, feels well. [facility] Medical History Hx of Lyme disease Fatigue Irritability PLMD (periodic limb movement disorder) FLAVIA (obstructive sleep apnea) B12 deficiency Hearing loss Aortic valve sclerosis Thrombocytopenia Varicose veins of both lower extremities Median neuropathy Degenerative joint disease Allergic rhinitis Pancytopenia Surgical History Total knee replacement status H/O myringoplasty History of tonsillectomy Hx of sinus surgery History of carpal tunnel release of both wrists Family History Grandmother Diabetes Mother Breast cancer Father Hodgkin disease Sister Myotonic dystrophy Social History Smoking Status: Former smoker alcohol intake: current alcohol intake frequency: a few times a week Intake Vital Signs 12/17/23 09:31 03/17/24 09:47 Height 5 ft 8 in 5 ft 8 in Weight: 108.465 kg 108.522 kg BMI 36.3 36.3 BP 124/71 H 145/84 H Blood Pressure Location Lt brachial Lt brachial Position Sitting Sitting Respiration 18 18 Pulse 65 68 Pulse Source Monitor Monitor Temp 98.1 F 97.6 F L Temperature Source Temporal Artery Temporal Artery Pulse Oximetry (%) 96 96 Oxygen Delivery Method room air room air Intake Is patient in pain?: No Allergies No Known Allergies Allergy (Verified 03/17/24 09:51) Medications ???Medication ???Instructions ???Recorded ???Confirmed ???Type acetaminophen 500 mg tablet 1,000 mg (2 x 500 mg) PO Q8 #90 08/20/17 03/17/24 Rx tabs elderberry fruit 350 mg capsule mg PO 03/19/23 03/17/24 History ibuprofen 200 mg tablet (Advil) 200 mg PO Q6H PRN 03/19/23 03/17/24 History latanoprost 0.005 % eye drops 1 drp ophthalmic (eye) DAILY 03/19/23 03/17/24 History tamsulosin 0.4 mg capsule 0.4 mg PO DAILY 03/19/23 03/17/24 History mecobalamin (vitamin B12) 1,000 1,000 mcg PO QWEEK 12/17/23 03/17/24 History mcg chewable tablet ashwagandha extract 120 mg capsule mg PO DAILY 03/17/24 03/17/24 History buspirone 7.5 mg tablet 7.5 mg PO BID 03/17/24 03/17/24 History duloxetine 60 mg capsule,delayed 60 mg PO BID 03/17/24 03/17/24 History release Have you fallen in the past year?: No Central Venous Access Central Venous Access: No Exam Physical Exam Const alert, oriented x3 and no apparent distress HEENT normocephalic Eyes conjunctivae normal and no scleral icterus Eyes Narrative: wears glasses Neck supple Lymph Lymphatic: no lymphadenopathy noted Resp normal respiratory effort and clear to auscultation bilaterally Cardio regular rate, regular rhythm, S1 normal heart sound and S2 normal heart sound GI normal to inspection, nondistended, normoactive bowel sounds; Negative for hepatosplenomegaly Inspection: central obesity no CVA tenderness Extremity normal to inspection and no clubbing, cyanosis or edema Skin no petechiae Skin Narrative: Neuro oriented x3, CN's II-XII intact bilaterally and moves all extremities Psych mental status grossly normal Coding Level of Care Code Off vis,est,level 3 Exam Problem Focused Diagnoses Thrombocytopenia D69.6 Neutropenia, unspecified type D70.9 Leukopenia type: neutropenia Neutropenia type: unspecified Assessment and Plan Assessment and Plan (1) Thrombocytopenia: Status: Chronic Comment: Asymptomatic. Plan: Labs reviewed with the patient. To continue observation. Given platelets are now 80,000. Advise shorter interval lab assessment. Repeat in 6 months. (2) Leukopenia: Status: Chronic Qualifiers: Leukopenia type: neutropenia Neutropenia type: unspecified Qualified Code(s): D70.9 - Neutropenia, unspecified Plan: To continue observation. Discussed Bone marrow evaluation, he wants to wait. Plan Details Follow Up: 6 Months Clinical Quality Measures Falls Risk Screening/Assistive Devices Have you fallen in the past year?: No 03/17/24 1016 Date (more content not included)... Normal [facility] Vitamin B12on 03-17-2024 Cobalamin (Vitamin B12) [Mass/Vol] pg/mL High 211-911 [facility] Comment on above: Order Comment: BIJAL Toribio ADD TO BLOOD IN LAB!! THANK YOU Performed By: #### L 506.0250, L503.0105 #### [facility] [address] [place], [address] Oncology Visit Reporton 12-06 Oncology Visit Report [facility] [address] [place] [address] OFFICE VISIT Date of Service: 12/17/23928 MR#: [id number] Acct: [id number] Name: CYN MC Rep #: [id number] : 1950 From: Danica Leon NP [employer] Age/Sex: 73/M Location[place] [facility] [place] Status: Signed HPI Subjective Date of Service 12/17/23 Chief Complaint F/u for thrombocytopenia and leukopenia History of Present Illness 73 y.o.man with a PMH significant for Lyme disease, FLAVIA, b12 deficiency, DJD, aortic valve sclerosis who was found to be Pancytopenic January 2023 and referred to hematology for further evaluation. Has been on observation since March 2023. Interval History Patient is presenting to clinic today for planned 6-month follow-up. Specifically denies any infections requiring atb or otherwise, fevers/chills, night sweats, dysphagia, enlarged lymph nodes, weight loss, CP, palpitations, cough, SOB, abd pain, swelling, pain of his extremities and any episodes of overt bleeding. +Does bruise easily, primarily forearms/dorsal surface of hands. Appetite good. Admits he was taking 5- 1000 mcg of B12 tablets daily. Was instructed yesterday by his pcp to reduce to 1 per day. Uses ibuprofen sparingly, < 1 dose/month. PFSH Medical History Hx of Lyme disease Fatigue Irritability PLMD (periodic limb movement disorder) FLAVIA (obstructive sleep apnea) B12 deficiency Hearing loss Aortic valve sclerosis Thrombocytopenia Varicose veins of both lower extremities Median neuropathy Degenerative joint disease Allergic rhinitis Pancytopenia Surgical History Total knee replacement status H/O myringoplasty History of tonsillectomy Hx of sinus surgery History of carpal tunnel release of both wrists Family History Grandmother Diabetes Mother Breast cancer Father Hodgkin disease Sister Myotonic dystrophy Social History Smoking Status: Former smoker alcohol intake: current alcohol intake frequency: a few times a week ROS ROS Narrative Negative except as documented in the interval HPI Intake Vital Signs 06/17/23 11:39 12/17/23 09:31 Height 5 ft 8 in 5 ft 8 in Weight: 224 lb 239 lb 2 oz BMI 34.0 36.3 BP 144/80 H 124/71 H Blood Pressure Location Rt brachial Lt brachial Position Sitting Sitting Respiration 16 18 Pulse 60 65 Pulse Source Monitor Monitor Temp 97.7 F L 98.1 F Temperature Source Temporal Artery Temporal Artery Pulse Oximetry (%) 95 96 Oxygen Delivery Method room air room air Intake Is patient in pain?: No Allergies No Known Allergies Allergy (Verified 12/17/23 09:34) Medications ???Medication ???Instructions ???Recorded ???Confirmed ???Type acetaminophen 500 mg tablet 1,000 mg (2 x 500 mg) PO Q8 #90 08/20/17 12/17/23 Rx tabs duloxetine 30 mg capsule,delayed 30 mg PO DAILY 03/19/23 12/17/23 History release duloxetine 60 mg capsule,delayed 60 mg PO DAILY 03/19/23 12/17/23 History release elderberry fruit 350 mg capsule mg PO 03/19/23 12/17/23 History ibuprofen 200 mg tablet (Advil) 200 mg PO Q6H PRN 03/19/23 12/17/23 History latanoprost 0.005 % eye drops 1 drp ophthalmic (eye) DAILY 03/19/23 12/17/23 History tamsulosin 0.4 mg capsule 0.4 mg PO DAILY 03/19/23 12/17/23 History mecobalamin (vitamin B12) 1,000 1,000 mcg PO QWEEK 12/17/23 12/17/23 History mcg chewable tablet Have you fallen in the past year?: No Laboratory Results 12/15/23 10:11 WBC 3.5 L Hgb 14.3 Hct 43.9 Plt Count 79 L Absolute Neuts (auto) 1.7 L Sodium 137 Potassium 3.8 Chloride 105 BUN 19 H Creatinine 0.83 Glucose 95 Calcium 9.3 Iron 119 TIBC 356 Iron Saturation 33.4 Ferritin 434 H Total Bilirubin 0.80 Lactate Dehydrogenase 250 H Exam Physical Exam Const alert, oriented x3 and no apparent distress HEENT normocephalic Eyes conjunctivae normal and no scleral icterus Eyes Narrative: wears glasses Neck supple Lymph Lymphatic: no lymphadenopathy noted Resp normal respiratory effort and clear to auscultation bilaterally Cardio regular rate, regular rhythm, S1 normal heart sound and S2 normal heart sound GI normal to inspection, nondistended, normoactive bowel sounds; Negative for hepatosplenomegaly Inspection: central obesity no CVA tenderness Extremity normal to inspection and no clubbing, cyanosis or edema Skin no petechiae Skin Narrative: a few ecchymotic areas involving forearms bilat Neuro oriented x3, CN's II-XII intact bilaterally and moves all extremities Psych (more content not included)... Normal [facility] CBC W/Diff, Automatedon PLT EST MOD DEC Normal ADEQ [facility] Comment on above: Performed By: #### L 501.6710, L500.4100, L500.4050, L101.9900, L501.9910, L503.0105, L504.2610, L503.6550, L503.6030, L100.0100 ####[facility] [address] [facility] [place], [place], [phone] RED CELL MORPH NORM C+C Normal NORM C C [facility] Comment on above: Performed By: #### L 501.6710, L500.4100, L500.4050, L101.9900, L501.9910, L503.0105, L504.2610, L503.6550, L503.6030, L100.0100 ####[facility] [address] [facility] [place], [place], [phone] CRPon 12-15-2023 C-REACTIVE PROT 3.94 mg/L High 0.0-3.0 [facility] Comment on above: Order Comment: 1 Result Comment: C-Re active Protein (CRP) provides useful information for the diagnosis, therapy and monitoring of inflammatory processes and associated diseases. For the evaluation of Relative Risk for Cardiovascular Disease, a High Sensitivity CRP (HSCRP) should be ordered. Performed By: #### L 501.6710, L500.4100, L500.4050, L101.9900, L501.9910, L503.0105, L504.2610, L503.6550, L503.6030, L100.0100 #### [facility] [address] [facility] [place], [place], [phone] Comprehensive Metabolic Prof ilon 12-15-2023 Albumin [Mass/Vol] 3.7 g/dL Normal 3.2-5.[address] [facility] Comment on above: Order Comment: 1 Performed By: #### L 501.6710, L500.4100, L500.4050, L101.9900, L501.9910, L503.0105, L504.2610, L503.6550, L503.6030, L100.0100 #### [facility] [address] [place], [address] Albumin/Globulin [Mass ratio] 1.0 {ratio} Normal 0.9-2.4 [facility] Comment on above: Order Comment: 1 Performed By: #### L 501.6710, L500.4100, L500.4050, L101.9900, L501.9910, L503.0105, L504.2610, L503.6550, L503.6030, L100.0100 #### [facility] [address] [place], [place], [phone] ALK P 64 U/L Normal 45-117 [facility] Comment on above: Order Comment: 1 Performed By: #### L 501.6710, L500.4100, L500.4050, L101.9900, L501.9910, L503.0105, L504.2610, L503.6550, L503.6030, L100.0100 #### [facility] [address] [place], [place], [phone] ALT [Catalytic activity/Vol] 55 U/L Normal 16-61 [facility] Comment on above: Order Comment: 1 Performed By: #### L 501.6710, L500.4100, L500.4050, L101.9900, L501.9910, L503.0105, L504.2610, L503.6550, L503.6030, L100.0100 #### [facility] [address] [place], [address] AST [Catalytic activity/Vol] 31 U/L Normal 15-37 [facility] Comment on above: Order Comment: 1 Performed By: #### L 501.6710, L500.4100, L500.4050, L101.9900, L501.9910, L503.0105, L504.2610, L503.6550, L503.6030, L100.0100 #### [facility] [address] [place], [address] Bilirubin [Mass/Vol] 0.80 mg/dL Normal 0.20-1.00 [facility] Comment on above: Order Comment: 1 Result Comment: For patients on eltrombopag therapy, use of Dimension Lyle TBIL is not recommended. Performed By: #### L 501.6710, L500.4100, L500.4050, L101.9900, L501.9910, L503.0105, L504.2610, L503.6550, L503.6030, L100.0100 #### [facility] [address] [place], [address] BUN/CRE 22.8 RATIO High 10-20 [facility] Comment on above: Order Comment: 1 Performed By: #### L 501.6710, L500.4100, L500.4050, L101.9900, L501.9910, L503.0105, L504.2610, L503.6550, L503.6030, L100.0100 #### [facility] [address] [place], [address] CA,Total 9.3 mg/dL Normal 8.5-10.1 [facility] Comment on above: Order Comment: 1 Performed By: #### L 501.6710, L500.4100, L500.4050, L101.9900, L501.9910, L503.0105, L504.2610, L503.6550, L503.6030, L100.0100 #### [facility] [address] [place], [address] Chloride [Moles/Vol] 105 mmol/L Normal 98-107 [facility] Comment on above: Order Comment: 1 Performed By: #### L 501.6710, L500.4100, L500.4050, L101.9900, L501.9910, L503.0105, L504.2610, L503.6550, L503.6030, L100.0100 #### [facility] [address] [place], [address] CO2 [Moles/Vol] 24.0 mmol/L Normal 21.0-32.0 [facility] Comment on above: Order Comment: 1 Performed By: #### L 501.6710, L500.4100, L500.4050, L101.9900, L501.9910, L503.0105, L504.2610, L503.6550, L503.6030, L100.0100 #### [facility] [address] [place], [address] Creatinine [Mass/Vol] 0.83 mg/dL Normal 0.70-1.30 [facility] Comment on above: Order Comment: 1 Result Comment: The validity of the calculated GFR GFRAA in patients over 70 years has not been determined. Clinical correlation is essential. Performed By: #### L 501.6710, L500.4100, L500.4050, L101.9900, L501.9910, L503.0105, L504.2610, L503.6550, L503.6030, L100.0100 #### [facility] [address] [place], [address] EST GFR - AA 117 mL/min Normal >60 [facility] Comment on above: Order Comment: 1 Result Comment: Afri can Croatian GFR Calc Performed By: #### L 501.6710, L500.4100, L500.4050, L101.9900, L501.9910, L503.0105, L504.2610, L503.6550, L503.6030, L100.0100 #### [facility] [address] [place], [address] GAP 8 Normal 5-15 [facility] Comment on above: Order Comment: 1 Performed By: #### L 501.6710, L500.4100, L500.4050, L101.9900, L501.9910, L503.0105, L504.2610, L503.6550, L503.6030, L100.0100 #### [facility] [address] [place], [place], [phone] ([phone]) GFR/1.73 sq M.predicted among non-blacks MDRD (S/P/Bld) [Vol rate/Area] 97 mL/min/{1.73_m2} Normal >60 [facility] Comment on above: Order Comment: 1 Result Comment: Non- GFR Calc Performed By: #### L 501.6710, L500.4100, L500.4050, L101.9900, L501.9910, L503.0105, L504.2610, L503.6550, L503.6030, L100.0100 #### [facility] [address] [place], [place], [phone] Globulin (S) [Mass/Vol] 3.6 g/dL Normal 2.2-4.2 [facility] Comment on above: Order Comment: 1 Performed By: #### L 501.6710, L500.4100, L500.4050, L101.9900, L501.9910, L503.0105, L504.2610, L503.6550, L503.6030, L100.0100 #### [facility] [address] [place], [place], [phone] ([phone]) Glucose [Mass/Vol] 95 mg/dL Normal 74-[address] [facility] Comment on above: Order Comment: 1 Performed By: #### L 501.6710, L500.4100, L500.4050, L101.9900, L501.9910, L503.0105, L504.2610, L503.6550, L503.6030, L100.0100 #### [facility] [address] [place], [place], [phone] Potassium [Moles/Vol] 3.8 mmol/L Normal 3.5-5.1 [facility] Comment on above: Order Comment: 1 Performed By: #### L 501.6710, L500.4100, L500.4050, L101.9900, L501.9910, L503.0105, L504.2610, L503.6550, L503.6030, L100.0100 #### [facility] [address] [place], [place], [phone] ([phone]) Sodium [Moles/Vol] 137 mmol/L Normal 136-[address] [facility] Comment on above: Order Comment: 1 Performed By: #### L 501.6710, L500.4100, L500.4050, L101.9900, L501.9910, L503.0105, L504.2610, L503.6550, L503.6030, L100.0100 #### [facility] [address] [place], [place], [phone] T PROT 7.3 g/dL Normal 6.4-8.2 [facility] Comment on above: Order Comment: 1 Performed By: #### L 501.6710, L500.4100, L500.4050, L101.9900, L501.9910, L503.0105, L504.2610, L503.6550, L503.6030, L100.0100 #### [facility] [address] [place], [place], [phone] ([phone] Urea nitrogen [Mass/Vol] 19 mg/dL High 7-18 [facility] Comment on above: Order Comment: 1 Performed By: #### L 501.6710, L500.4100, L500.4050, L101.9900, L501.9910, L503.0105, L504.2610, L503.6550, L503.6030, L100.0100 #### [facility] [address] [place], [place], [phone] Erythrocyte Sed Rateon 12-14 SED RATE 1 mm/hr Normal 0-20 [facility] Comment on above: Performed By: #### L 501.6710, L500.4100, L500.4050, L101.9900, L501.9910, L503.0105, L504.2610, L503.6550, L503.6030, L100.0100 ####[facility] [address] [place], [place], [phone] Ferritinon 12-15-2023 Ferritin [Mass/Vol] 434 ng/mL High 26-388 [facility] Comment on above: Order Comment: 1 Performed By: #### L 501.6710, L500.4100, L500.4050, L101.9900, L501.9910, L503.0105, L504.2610, L503.6550, L503.6030, L100.0100 ####[facility] [address] [place], [place], [phone] Iron+Iron Binding Capacityon 12-15-2023 Iron [Mass/Vol] 119 ug/dL Normal 65-175 [facility] Comment on above: Order Comment: 1 Performed By: #### L 501.6710, L500.4100, L500.4050, L101.9900, L501.9910, L503.0105, L504.2610, L503.6550, L503.6030, L100.0100 ####[facility] [address] [place], [place], [phone] IRON SATURATION 33.4 Normal 15.0-55.0 [facility] Comment on above: Order Comment: 1 Performed By: #### L 501.6710, L500.4100, L500.4050, L101.9900, L501.9910, L503.0105, L504.2610, L503.6550, L503.6030, L100.0100 ####[facility] [address] [place], [address] TIBC 356 ug/dL Normal 250-450 [facility] Comment on above: Order Comment: 1 Performed By: #### L 501.6710, L500.4100, L500.4050, L101.9900, L501.9910, L503.0105, L504.2610, L503.6550, L503.6030, L100.0100 ####[facility] [address] [place], [address] LDHon 12-15-2023 LDH 250 U/L High 87-241 [facility] Comment on above: Order Comment: 1 Performed By: #### L 501.6710, L500.4100, L500.4050, L101.9900, L501.9910, L503.0105, L504.2610, L503.6550, L503.6030, L100.0100 ####[facility] [address] [place], [address] Lipid Profileon 12-15-2023 Cholesterol [Mass/Vol] 153 mg/dL Normal 200 [facility] Comment on above: Order Comment: 1 Result Comment: <200 mg/dL Desirable 200-240 mg/dL Borderline >240 mg/dL High Risk Performed By: #### L 501.6710, L500.4100, L500.4050, L101.9900, L501.9910, L503.0105, L504.2610, L503.6550, L503.6030, L100.0100 #### [facility] [address] [place], [address] Cholesterol in HDL [Mass/Vol] 51 mg/dL Normal [facility] Comment on above: Order Comment: 1 Result Comment: The drugs N-Acetylcysteine and Metamizole may falsely depress this assay. Reference Range HDL <40 mg/dL Low HDL Cholesterol HDL >or= 60 mg/dL High HDL Cholesterol Performed By: #### L 501.6710, L500.4100, L500.4050, L101.9900, L501.9910, L503.0105, L504.2610, L503.6550, L503.6030, L100.0100 #### [facility] [address] [place], [address] Cholesterol in LDL [Mass/Vol] 85 mg/dL Normal 0-130 [facility] Comment on above: Order Comment: 1 Performed By: #### L 501.6710, L500.4100, L500.4050, L101.9900, L501.9910, L503.0105, L504.2610, L503.6550, L503.6030, L100.0100 #### [facility] [address] [place], [place], [id number] [phone] Cholesterol in VLDL [Mass/Vol] 17 mg/dL Normal 5-40 [facility] Comment on above: Order Comment: 1 Performed By: #### L 501.6710, L500.4100, L500.4050, L101.9900, L501.9910, L503.0105, L504.2610, L503.6550, L503.6030, L100.0100 #### [facility] [address] [place], [place], [id number] [phone] Triglyceride [Mass/Vol] 87 mg/dL Normal [facility] Comment on above: Order Comment: 1 Result Comment: The drugs N-Acetylcysteine and Metamizole may falsely depress this assay. Serum Triglycerides Reference Interval Normal <150 mg/dL Borderline high 150 - 199 mg/dL High 200 - 499 mg/dL Very High > or = 500 mg/dL Performed By: #### L 501.6710, L500.4100, L500.4050, L101.9900, L501.9910, L503.0105, L504.2610, L503.6550, L503.6030, L100.0100 #### [facility] [address] [place], [place], [id number] PSA,Total - Annual Screenon 12-15-2023 PSA,TOT SCREEN 1.73 ng/mL Normal 0.00-4.00 [facility] Comment on above: Order Comment: 1 Result Comment: This test was performed using the TPSA assay method for the [employer] chemistry system. Values obtained with different assay methods cannot be used interchangably. When changing PSA assays in the course of monitoring a patient, additional sequential testing should be carried out to confirm baseline values. Performed By: #### L 501.6710, L500.4100, L500.4050, L101.9900, L501.9910, L503.0105, L504.2610, L503.6550, L503.6030, L100.0100 #### [facility] [address] [place], [place], [id number] Vitamin B12on 12-15-2023 Cobalamin (Vitamin B12) [Mass/Vol] pg/mL High 211-911 [facility] Comment on above: Performed By: #### L 501.6710, L500.4100, L500.4050, L101.9900, L501.9910, L503.0105, L504.2610, L503.6550, L503.6030, L100.0100 #### [facility] [address] [place], [place], [id number] Absolute lymphocyte countOrd ered By: Idris DiasAnna on 03-06-2023 Lymphocytes Auto (Unsp spec) [#/Vol] 1.50 10*3/uL 0.83-4.51 [facility] Basophil percentageOrdered B y: Idris Anna on 03-06-2023 Basophils/100 WBC (Bld) 0.6 % 0-1 [facility] Eosinophils/100 WBC (Bld) 1.8 % 0-5 [facility] Neutrophils (Bld) [#/Vol] 1.2 10*3/uL 2.0-7.7 [facility] Neutrophils/100 WBC (Bld) 33.9 % 47-70 [facility] WBC (Bld) [#/Vol] 3.4 10*3/uL 4.4-11.[address] [facility] Blood erythrocytes count (nu mber/volume)Ordered By: Idris Castillo on 03-06-2023 RBC (Bld) [#/Vol] 4.42 10*6/uL 4.6-6.2 [facility] Blood hemoglobin measurement (mass/volume)Ordered By: Idris Castillo on 03-06-2023 Hemoglobin (Bld) [Mass/Vol] 12.9 g/dL 13.0-16.5 [facility] Blood lymphocytes/100 leukoc ytesOrdered By: Idris Castillo on 03-06-2023 Lymphocytes/100 WBC (Bld) 43.9 % 19-41 [facility] Blood monocytes/100 leukocyt esOrdered By: Idris Castillo on 03-06-2023 Monocytes/100 WBC (Bld) 17.8 % 0-10 [facility] Determination of erythrocyte mean corpuscular volume (MCV)Ordered By: Idris Castillo on 03-06-2023 MCV (RBC) [Entitic vol] 89.6 fL 80-94 [facility] Hematocrit Auto (Bld) [Volum e fraction]Ordered By: Idris Castillo on 03-06-2023 Hematocrit (Bld) [Volume fraction] 39.6 % 40-54 [facility] - Hematology and Cell countsOrdered By: Idris Castillo on 03-06-2023 Erythrocyte distribution width (RBC) [Entitic vol] 47.9 fL 35.1-43.9 [facility] Erythrocyte distribution width (RBC) [Ratio] 14.9 % 11.6-14.6 [facility] Immature granulocytes/100 WBC (Bld) 2.000 % 0.0-0.9 [facility] Comment on above: IG% - Immature Granu locytes (promyelocytes, myelocytes and metamyelocytes) > 1% indicates that a LEFT SHIFT is Present. MCH (RBC) [Entitic mass] 29.2 pg 27.0-32.0 [facility] Nucleated RBC/100 WBC (Bld) [Ratio] 0 % 0-5 [facility] MCHC Auto (RBC) [Mass/Vol]Or dered By: Idris Castillo on 03-06-2023 MCHC (RBC) [Mass/Vol] 32.6 g/dL 32-36 [facility] Platelets bldOrdered By: Casandra wells Anna on 03-06-2023 Platelets (Bld) [#/Vol] 103 10*3/uL 150-450 [facility] Absolute lymphocyte countOrd ered By: Idris Castillo on 02-14-2023 Lymphocytes Auto (Unsp spec) [#/Vol] 1.24 10*3/uL 0.83-4.51 [facility] Basophil percentageOrdered B y: Idris Castillo on 02-14-2023 Basophils/100 WBC (Bld) 0.6 % 0-1 [facility] Bilirubin [Mass/Vol] 0.70 mg/dL 0.20-1.00 [facility] Comment on above: For patients on eltr ombopag therapy, use of Dimension Lyle TBIL is not recommended. Chloride [Moles/Vol] 104 mmol/L 98-107 [facility] Eosinophils/100 WBC (Bld) 0.9 % 0-5 [facility] Glucose [Mass/Vol] 90 mg/dL 74-[address] [facility] LDH [Catalytic activity/Vol] 240 U/L 87-241 [facility] Neutrophils (Bld) [#/Vol] 1.4 10*3/uL 2.0-7.7 [facility] Neutrophils/100 WBC (Bld) 44.1 % 47-70 [facility] Potassium [Moles/Vol] 3.7 mmol/L 3.5-5.1 [facility] Protein [Mass/Vol] 7.6 g/dL 6.4-8.[address] [facility] Sodium [Moles/Vol] 136 mmol/L 136-[address] [facility] WBC (Bld) [#/Vol] 3.2 10*3/uL 4.4-11.[address] [facility] Blood erythrocytes count (nu mber/volume)Ordered By: Idris Castillo on 02-14-2023 RBC (Bld) [#/Vol] 4.11 10*6/uL 4.6-6.2 [facility] Blood hemoglobin measurement (mass/volume)Ordered By: Idris Castillo on 02-14-2023 Hemoglobin (Bld) [Mass/Vol] 11.9 g/dL 13.0-16.5 [facility] Blood lymphocytes/100 leukoc ytesOrdered By: Idris Castillo on 02-14-2023 Lymphocytes/100 WBC (Bld) 39.0 % 19-41 [facility] Blood monocytes/100 leukocyt esOrdered By: Idris Castillo on 02-14-2023 Monocytes/100 WBC (Bld) 14.5 % 0-10 [facility] Blood platelet mean volumeOr dered By: Idris Castillo on 02-14-2023 Platelet mean volume (Bld) [Entitic vol] 12.8 fL 6.2-12.0 [facility] Determination of erythrocyte mean corpuscular volume (MCV)Ordered By: Idris Castillo on 02-14-2023 MCV (RBC) [Entitic vol] 93.9 fL 80-94 [facility] Hematocrit Auto (Bld) [Volum e fraction]Ordered By: Idris Castillo on 02-14-2023 Hematocrit (Bld) [Volume fraction] 38.6 % 40-54 [facility] Hemoglobin in reticulocytes (mass per reticulocyte)Ordered By: Idris Castillo on 02-14-2023 Hemoglobin (Reticulocytes) [Entitic mass] 31.9 pg 30-35 [facility] - Chemistry and C hemistry - challengeOrdered By: Idris Castillo on 02-14-2023 ALP [Catalytic activity/Vol] 69 U/L 45-117 [facility] ALT [Catalytic activity/Vol] 26 U/L 16-61 [facility] CO2 [Moles/Vol] 26.0 mmol/L 21.0-32.0 [facility] Globulin (S) [Mass/Vol] 4.2 g/dL 2.2-4.2 [facility] Urea nitrogen/Creatinine [Mass ratio] 14.5 mg/mg 10-20 [facility] - Hematology and Cell countsOrdered By: Idris Castillo on 02-14-2023 Erythrocyte distribution width (RBC) [Entitic vol] 53.0 fL 35.1-43.9 [facility] Erythrocyte distribution width (RBC) [Ratio] 15.6 % 11.6-14.6 [facility] Immature granulocytes/100 WBC (Bld) 0.900 % 0.0-0.9 [facility] Comment on above: IG% - Immature Granu locytes (promyelocytes, myelocytes and metamyelocytes) > 1% indicates that a LEFT SHIFT is Present. MCH (RBC) [Entitic mass] 29.0 pg 27.0-32.0 [facility] Nucleated RBC/100 WBC (Bld) [Ratio] 0 % 0-5 [facility] MCHC Auto (RBC) [Mass/Vol]Or dered By: Idris Castillo on 02-14-2023 MCHC (RBC) [Mass/Vol] 30.8 g/dL 32-36 [facility] No Panel InformationOrdered By: Idris Castillo on 02-14-2023 Estimated GFR (MDRD) Amer 146 mL/min >60 [facility] Comment on above: GFR Calc Estimated GFR (MDRD) Non-Af Amer 121 mL/min >60 [facility] Comment on above: Non- GFR Calc Immature Platelet Fraction 15.7 % 1.0-7.9 [facility] Comment on above: Low PLT + Low IPF campbell ggest a bone marrow production disorderLow PLT + high IPF suggests peripheral destruction(e.g.ITP, TTP, HIT, DIC, autoimmune) or bone marrow recoveryTrending of serial IPF measurements is recommended when evaluating for bone marrow responesValue above normal range indicates an increase in RBC cellular response from bone marrow. Immature Reticulocyte Fraction 14.30 % 3.00-15.90 [facility] Reticulocyte Count 2.25 % 0.5-1.[address] [facility] Platelets bldOrdered By: Casandra Castillo on 02-14-2023 Platelets (Bld) [#/Vol] 120 10*3/uL 150-450 [facility] Serum or plasma albumin renetta urement (mass/volume)Ordered By: Idris Castillo on 02-14-2023 Albumin [Mass/Vol] 3.4 g/dL 3.2-5.[address] [facility] Serum or plasma albumin/glob ulin mass ratioOrdered By: Idris Castillo on 02-14-2023 Albumin/Globulin [Mass ratio] 0.8 {ratio} 0.9-2.4 [facility] Serum or plasma calcium renetta urement (mass/volume)Ordered By: Idris Castillo on 02-14-2023 Calcium [Mass/Vol] 9.2 mg/dL 8.5-10.[address] [facility] Serum or plasma creatinine m easurement (mass/volume)Ordered By: Idris Castillo on 02-14-2023 Creatinine [Mass/Vol] 0.69 mg/dL 0.70-1.30 [facility] Comment on above: The validity of the calculated GFR & GFRAA in patients over 70 years has not been determined. Clinical correlation is essential. Serum or plasma folate measu rement (mass/volume)Ordered By: Idris Castillo on 02-14-2023 Folate [Mass/Vol] 17.00 ng/mL 3.1-55.[address] [facility] Serum or plasma urea nitroge n measurement (mass/volume)Ordered By: Idris Castillo on 02-14-2023 Urea nitrogen [Mass/Vol] 10 mg/dL 7-18 [facility] Serum or plasma uric acid me asurement (mass/volume)Ordered By: Idris Castillo on 02-14-2023 Urate [Mass/Vol] 5.0 mg/dL 3.5-7.2 [facility] Comment on above: The drugs N-Acetylcy steine and Metamizole may falsely depress this assay. Serum rheumatoid factor dete ctionOrdered By: Idris Castillo on 02-14-2023 Rheumatoid factor Ql (S) < 10.0 IU/mL <15 [facility] Thin prep Papanicolaou smear with manual screeningOrdered By: Idris Castillo on 02-14-2023 Thin prep Papanicolaou smear with manual screening 21 U/L 15-37 [facility] Thin prep Papanicolaou smear with manual screening 6 5-15 [facility] Absolute lymphocyte countOrd ered By: Idris Castillo on 01-29-2023 Lymphocytes Auto (Unsp spec) [#/Vol] 1.05 10*3/uL 0.83-4.51 [facility] Basophil percentageOrdered B y: Idris Castillo on 01-29-2023 Basophils/100 WBC (Bld) 0.3 % 0-1 [facility] Eosinophils/100 WBC (Bld) 1.0 % 0-5 [facility] Neutrophils (Bld) [#/Vol] 1.3 10*3/uL 2.0-7.7 [facility] Neutrophils/100 WBC (Bld) 46.2 % 47-70 [facility] WBC (Bld) [#/Vol] 2.9 10*3/uL 4.4-11.[address] [facility] Bilirubin Test strip Ql (U)O rdered By: Idris Castillo on 01-29-2023 Bilirubin Ql (U) Negative Negative [facility] Blood erythrocytes count (nu mber/volume)Ordered By: Idris Castillo on 01-29-2023 RBC (Bld) [#/Vol] 3.71 10*6/uL 4.6-6.2 [facility] Blood hemoglobin measurement (mass/volume)Ordered By: Idris Castillo on 01-29-2023 Hemoglobin (Bld) [Mass/Vol] 10.8 g/dL 13.0-16.5 [facility] Blood lymphocytes/100 leukoc ytesOrdered By: Idris Castillo on 01-29-2023 Lymphocytes/100 WBC (Bld) 36.1 % 19-41 [facility] Blood monocytes/100 leukocyt esOrdered By: Idris Castillo on 01-29-2023 Monocytes/100 WBC (Bld) 13.7 % 0-10 [facility] Determination of erythrocyte mean corpuscular volume (MCV)Ordered By: Idris Castillo on 01-29-2023 MCV (RBC) [Entitic vol] 91.4 fL 80-94 [facility] Hematocrit Auto (Bld) [Volum e fraction]Ordered By: Idris Castillo on 01-29-2023 Hematocrit (Bld) [Volume fraction] 33.9 % 40-54 [facility] Ketones Test strip Ql (U)Ord ered By: Idris Castillo on 01-29-2023 Ketones Ql (U) Negative Negative [facility] - Hematology and Cell countsOrdered By: Idris Castillo on 01-29-2023 Erythrocyte distribution width (RBC) [Entitic vol] 53.7 fL 35.1-43.9 [facility] Erythrocyte distribution width (RBC) [Ratio] 16.5 % 11.6-14.6 [facility] Immature granulocytes/100 WBC (Bld) 2.700 % 0.0-0.9 [facility] Comment on above: IG% - Immature Granu locytes (promyelocytes, myelocytes and metamyelocytes) > 1% indicates that a LEFT SHIFT is Present. MCH (RBC) [Entitic mass] 29.1 pg 27.0-32.0 [facility] Nucleated RBC/100 WBC (Bld) [Ratio] 0 % 0-5 [facility] MCHC Auto (RBC) [Mass/Vol]Or dered By: Idris Castillo on 01-29-2023 MCHC (RBC) [Mass/Vol] 31.9 g/dL 32-36 [facility] Nitrite Test strip Ql (U)Ord ered By: Idris Castillo on 01-29-2023 Nitrite Ql (U) Negative Negative [facility] No Panel InformationOrdered By: Idris Castillo on 01-29-2023 Miscellaneous Test See comment [facility] Comment on above: TEST RESULTS LIMITSS tool CultureSalmonella/Shigella Screen Final report Result 1 No Salmonella or Shigella recoveredCampylobacter Culture Final report Result 1 No Campylobacter species isolated.E coli Shiga Toxin IEA Negative TESTING PERFORMED AT [facility]. ORIGINAL REPORT ON FILE IN LAB CONTAINS ADDITIONAL TEST SITE INFORMATION. Ova and parasitesOrdered By: Idris Castillo on 01-29-2023 Ova and parasites identified LM Nom (Unsp spec) [facility] Platelets bldOrdered By: Casandra Castillo on 01-29-2023 Platelets (Bld) [#/Vol] 101 10*3/uL 150-450 [facility] Protein Test strip Ql (U)Ord ered By: Idris Castillo on 01-29-2023 Protein Ql (U) 15 mg/dl Negative [facility] Review by pathologistOrdered By: Idris Castillo on 01-29-2023 Pathologist review Ted (Unsp spec) [Interp] Reviewed [facility] Comment on above: Pancytopenia.Leukope marino and Neutropenia.Normocytic anemia.ThrombocytopeniaClinical correlation necessary.Sascha Ramos M.D. 02/05/23 Urine blood detectionOrdered By: Idris Castillo on 01-29-2023 RBC Ql (U) Negative Negative [facility] Urine clarityOrdered By: Casandra Castillo on 01-29-2023 Clarity (U) Sl. Cloudy Clear [facility] Urine color determinationOrd ered By: Idris Castillo on 01-29-2023 Color (U) Yellow Yellow [facility] Urine glucose detectionOrder ed By: Idris Castillo on 01-29-2023 Glucose Ql (U) Normal mg/dl Normal [facility] Urine leukocyte esterase det ection by dipstickOrdered By: Idris Castillo on 01-29-2023 Leukocyte esterase Test strip Ql (U) 25 /ul Negative [facility] Urine pHOrdered By: Idris mustafa on 01-29-2023 pH (U) 6.0 [pH] 5.0 - 8.0 [facility] Urine specific gravity measu rementOrdered By: Idris Castillo on 01-29-2023 Specific gravity (U) [Rel density] 1.015 1.002-1.030 [facility] Urobilinogen Auto test strip Ql (U)Ordered By: Idris Castillo on 01-29-2023 Urobilinogen Ql (U) Normal mg/dl Normal [facility] Absolute lymphocyte countOrd ered By: Idris Castillo on 01-22-2023 Lymphocytes Auto (Unsp spec) [#/Vol] 0.63 10*3/uL 0.83-4.51 [facility] Basophil percentageOrdered B y: Idris Castillo on 01-22-2023 Basophils/100 WBC (Bld) 0.0 % 0-1 [facility] Bilirubin [Mass/Vol] 1.60 mg/dL 0.20-1.00 [facility] Comment on above: For patients on eltr ombopag therapy, use of Dimension Lyle TBIL is not recommended. Chloride [Moles/Vol] 104 mmol/L 98-107 [facility] Eosinophils/100 WBC (Bld) 1.4 % 0-5 [facility] Glucose [Mass/Vol] 102 mg/dL 74-[address] [facility] Comment on above: Fasting Glucose resu lt from 100 to 125 mg/dL suggests IMPAIRED HOMEOSTASIS per A.D.A. criteria. Neutrophils (Bld) [#/Vol] 1.9 10*3/uL 2.0-7.7 [facility] Neutrophils/100 WBC (Bld) 65.8 % 47-70 [facility] Potassium [Moles/Vol] 3.7 mmol/L 3.5-5.1 [facility] Protein [Mass/Vol] 7.1 g/dL 6.4-8.[address] [facility] Sodium [Moles/Vol] 134 mmol/L 136-[address] [facility] WBC (Bld) [#/Vol] 2.9 10*3/uL 4.4-11.[address] [facility] Blood erythrocytes count (nu mber/volume)Ordered By: Idris Castillo on 01-22-2023 RBC (Bld) [#/Vol] 3.84 10*6/uL 4.6-6.2 [facility] Blood hemoglobin measurement (mass/volume)Ordered By: Idris Castillo on 01-22-2023 Hemoglobin (Bld) [Mass/Vol] 11.2 g/dL 13.0-16.5 [facility] Blood lymphocytes/100 leukoc ytesOrdered By: Idris Castillo on 01-22-2023 Lymphocytes/100 WBC (Bld) 21.7 % 19-41 [facility] Blood monocytes/100 leukocyt esOrdered By: Idris Castillo on 01-22-2023 Monocytes/100 WBC (Bld) 9.7 % 0-10 [facility] Determination of erythrocyte mean corpuscular volume (MCV)Ordered By: Idris Castillo on 01-22-2023 MCV (RBC) [Entitic vol] 90.9 fL 80-94 [facility] Hematocrit Auto (Bld) [Volum e fraction]Ordered By: Idris Castillo on 01-22-2023 Hematocrit (Bld) [Volume fraction] 34.9 % 40-54 [facility] - Chemistry and C hemistry - challengeOrdered By: Idris Castillo on 01-22-2023 ALP [Catalytic activity/Vol] 58 U/L 45-117 [facility] ALT [Catalytic activity/Vol] 41 U/L 16-61 [facility] CO2 [Moles/Vol] 25.0 mmol/L 21.0-32.0 [facility] Globulin (S) [Mass/Vol] 4.0 g/dL 2.2-4.2 [facility] Urea nitrogen/Creatinine [Mass ratio] 11.5 mg/mg 10-20 [facility] - Hematology and Cell countsOrdered By: Idris Castillo on 01-22-2023 Erythrocyte distribution width (RBC) [Entitic vol] 52.9 fL 35.1-43.9 [facility] Erythrocyte distribution width (RBC) [Ratio] 16.5 % 11.6-14.6 [facility] Immature granulocytes/100 WBC (Bld) 1.400 % 0.0-0.9 [facility] Comment on above: IG% - Immature Granu locytes (promyelocytes, myelocytes and metamyelocytes) > 1% indicates that a LEFT SHIFT is Present. MCH (RBC) [Entitic mass] 29.2 pg 27.0-32.0 [facility] Nucleated RBC/100 WBC (Bld) [Ratio] 0 % 0-5 [facility] MCHC Auto (RBC) [Mass/Vol]Or dered By: Idris Castillo on 01-22-2023 MCHC (RBC) [Mass/Vol] 32.1 g/dL 32-36 [facility] No Panel InformationOrdered By: Idris Castillo on 01-22-2023 Estimated GFR (MDRD) Amer 144 mL/min >60 [facility] Comment on above: GFR Calc Estimated GFR (MDRD) Non-Af Amer 119 mL/min >60 [facility] Comment on above: Non- GFR Calc Miscellaneous Test See comment [facility] Comment on above: Scanned image report available in EMR Platelets bldOrdered By: Casandra priscilla Anna on 01-22-2023 Platelets (Bld) [#/Vol] 106 10*3/uL 150-450 [facility] Serum or plasma albumin renetta urement (mass/volume)Ordered By: Idris Castillo on 01-22-2023 Albumin [Mass/Vol] 3.1 g/dL 3.2-5.[address] [facility] Serum or plasma albumin/glob ulin mass ratioOrdered By: Idris Castillo on 01-22-2023 Albumin/Globulin [Mass ratio] 0.8 {ratio} 0.9-2.4 [facility] Serum or plasma calcium renetta urement (mass/volume)Ordered By: Idris Castillo on 01-22-2023 Calcium [Mass/Vol] 9.2 mg/dL 8.5-10.[address] [facility] Serum or plasma creatinine m easurement (mass/volume)Ordered By: Idris Castillo on 01-22-2023 Creatinine [Mass/Vol] 0.70 mg/dL 0.70-1.30 [facility] Comment on above: The validity of the calculated GFR & GFRAA in patients over 70 years has not been determined. Clinical correlation is essential. Serum or plasma urea nitroge n measurement (mass/volume)Ordered By: Idris Castillo on 01-22-2023 Urea nitrogen [Mass/Vol] 8 mg/dL 18 [facility] Thin prep Papanicolaou smear with manual screeningOrdered By: Idris Castillo on 01-22-2023 Thin prep Papanicolaou smear with manual screening 30 U/L 15-37 [facility] Thin prep Papanicolaou smear with manual screening 5 5-15 [facility] Absolute lymphocyte countOrd ered By: Idris Castillo on 01-15-2023 Lymphocytes Auto (Unsp spec) [#/Vol] 0.80 10*3/uL 0.83-4.51 [facility] Basophil percentageOrdered B y: Idris Castillo on 01-15-2023 Basophils/100 WBC (Bld) 0.3 % 0-1 [facility] Bilirubin [Mass/Vol] 1.60 mg/dL 0.20-1.00 [facility] Comment on above: For patients on eltr ombopag therapy, use of Dimension Lyle TBIL is not recommended. Chloride [Moles/Vol] 101 mmol/L 98-107 [facility] Eosinophils/100 WBC (Bld) 0.8 % 0-5 [facility] Glucose [Mass/Vol] 100 mg/dL 74-[address] [facility] Comment on above: Fasting Glucose resu lt from 100 to 125 mg/dL suggests IMPAIRED HOMEOSTASIS per A.D.A. criteria. Neutrophils (Bld) [#/Vol] 2.5 10*3/uL 2.0-7.7 [facility] Neutrophils/100 WBC (Bld) 65.5 % 47-70 [facility] Potassium [Moles/Vol] 3.2 mmol/L 3.5-5.1 [facility] Protein [Mass/Vol] 7.3 g/dL 6.4-8.[address] [facility] Sodium [Moles/Vol] 134 mmol/L 136-[address] [facility] WBC (Bld) [#/Vol] 3.8 10*3/uL 4.4-11.[address] [facility] Blood erythrocytes count (nu mber/volume)Ordered By: Idris Castillo on 01-15-2023 RBC (Bld) [#/Vol] 4.15 10*6/uL 4.6-6.2 [facility] Blood hemoglobin measurement (mass/volume)Ordered By: Idris Castillo on 01-15-2023 Hemoglobin (Bld) [Mass/Vol] 11.9 g/dL 13.0-16.5 [facility] Blood lymphocytes/100 leukoc ytesOrdered By: Idris Castillo on 01-15-2023 Lymphocytes/100 WBC (Bld) 21.2 % 19-41 [facility] Blood manual differential co mment interpretation (narrative result)Ordered By: Idris Castillo on 01-15-2023 Manual differential comment Ted (Bld) [Interp] SEE COMMENT [facility] Comment on above: THROMBOCYTOPENIA NOT ED Blood monocytes/100 leukocyt esOrdered By: Idris Castillo on 01-15-2023 Monocytes/100 WBC (Bld) 11.1 % 0-10 [facility] Blood platelet adequacy dete ction by light microscopyOrdered By: Idris Castillo on 01-15-2023 Platelets LM Ql (Bld) MOD DEC ADEQ [facility] Blood platelet mean volumeOr dered By: Idris Castillo on 01-15-2023 Platelet mean volume (Bld) [Entitic vol] TNP [facility] Comment on above: Test not performed Determination of erythrocyte mean corpuscular volume (MCV)Ordered By: Idris Castillo on 01-15-2023 MCV (RBC) [Entitic vol] 90.8 fL 80-94 [facility] Erythrocyte sedimentation ra teOrdered By: Idris Castillo on 01-15-2023 ESR (Bld) [Velocity] 36 mm/h 0-20 [facility] Hematocrit Auto (Bld) [Volum e fraction]Ordered By: Idris Castillo on 01-15-2023 Hematocrit (Bld) [Volume fraction] 37.7 % 40-54 [facility] Laboratory - Chemistry and C hemistry - challengeOrdered By: Idris Castillo on 01-15-2023 ALP [Catalytic activity/Vol] 53 U/L 45-117 [facility] ALT [Catalytic activity/Vol] 39 U/L 16-61 [facility] CK [Catalytic activity/Vol] 82 U/L 39-308 [facility] CO2 [Moles/Vol] 24.0 mmol/L 21.0-32.0 [facility] Globulin (S) [Mass/Vol] 3.9 g/dL 2.2-4.2 [facility] Urea nitrogen/Creatinine [Mass ratio] 16.6 mg/mg 10-20 [facility] Laboratory - Hematology and Cell countsOrdered By: Idris Castillo on 01-15-2023 Anisocytosis Ql (Bld) RARE [facility] Erythrocyte distribution width (RBC) [Entitic vol] 52.1 fL 35.1-43.9 [facility] Erythrocyte distribution width (RBC) [Ratio] 16.0 % 11.6-14.6 [facility] Immature granulocytes/100 WBC (Bld) 1.100 % 0.0-0.9 [facility] Comment on above: IG% - Immature Granu locytes (promyelocytes, myelocytes and metamyelocytes) > 1% indicates that a LEFT SHIFT is Present. MCH (RBC) [Entitic mass] 28.7 pg 27.0-32.0 [facility] Nucleated RBC/100 WBC (Bld) [Ratio] 0 % 0-5 [facility] MCHC Auto (RBC) [Mass/Vol]Or dered By: Idris Castillo on 01-15-2023 MCHC (RBC) [Mass/Vol] 31.6 g/dL 32-36 [facility] No Panel InformationOrdered By: Idris Castillo on 01-15-2023 Estimated GFR (MDRD) Amer 138 mL/min >60 [facility] Comment on above: GFR Calc Estimated GFR (MDRD) Non-Af Amer 114 mL/min >60 [facility] Comment on above: Non- GFR Calc Thyroid Stimulating Hormone (TSH) 2.79 uIU/mL 0.358-3.74 [facility] Platelets bldOrdered By: Casandra Castillo on 01-15-2023 Platelets (Bld) [#/Vol] 82 10*3/uL 150-450 [facility] RBC morphologyOrdered By: Shayy Castillo on 01-15-2023 RBC morphology finding Nom (Bld) N CHROM NORMAL NORM C&C [facility] Serum or plasma albumin renetta urement (mass/volume)Ordered By: Idris Castillo on 01-15-2023 Albumin [Mass/Vol] 3.4 g/dL 3.2-5.[address] [facility] Serum or plasma albumin/glob ulin mass ratioOrdered By: Idris Castillo on 01-15-2023 Albumin/Globulin [Mass ratio] 0.9 {ratio} 0.9-2.4 [facility] Serum or plasma calcium renetta urement (mass/volume)Ordered By: Idris Castillo on 01-15-2023 Calcium [Mass/Vol] 9.3 mg/dL 8.5-10.[address] [facility] Serum or plasma creatinine m easurement (mass/volume)Ordered By: Idris Castillo on 01-15-2023 Creatinine [Mass/Vol] 0.72 mg/dL 0.70-1.30 [facility] Comment on above: The validity of the calculated GFR & GFRAA in patients over 70 years has not been determined. Clinical correlation is essential. Serum or plasma urea nitroge n measurement (mass/volume)Ordered By: Idris Castillo on 01-15-2023 Urea nitrogen [Mass/Vol] 12 mg/dL 7-18 [facility] Thin prep Papanicolaou smear with manual screeningOrdered By: Idris Castillo on 01-15-2023 Thin prep Papanicolaou smear with manual screening 21 U/L 15-37 [facility] Thin prep Papanicolaou smear with manual screening 9 5-15 [facility] Whole blood hemoglobin A1c/t otal hemoglobin ratio (mass fraction)Ordered By: Idris Castillo on 01-15-2023 HbA1c (Bld) [Mass fraction] 4.5 % 3.8-5.6 [facility] Comment on above: Normal < 5.7 % Predi abetic 5.7 - 6.4 % Diabetic >or= 6.5 % Please note range changes. Absolute lymphocyte countOrd ered By: Davin Arndt on 12-27-2022 Lymphocytes Auto (Unsp spec) [#/Vol] 0.83 10*3/uL 0.83-4.51 [facility] Basophil percentageOrdered B y: Davin Arndt on 12-27-2022 Basophils/100 WBC (Bld) 0.3 % 0-1 [facility] Chloride [Moles/Vol] 100 mmol/L 98-107 [facility] Eosinophils/100 WBC (Bld) 0.3 % 0-5 [facility] Glucose [Mass/Vol] 122 mg/dL 74-[address] [facility] Comment on above: Fasting Glucose resu lt from 100 to 125 mg/dL suggests IMPAIRED HOMEOSTASIS per A.D.A. criteria. Neutrophils (Bld) [#/Vol] 4.9 10*3/uL 2.0-7.7 [facility] Neutrophils/100 WBC (Bld) 76.3 % 47-70 [facility] Potassium [Moles/Vol] 3.4 mmol/L 3.5-5.1 [facility] Sodium [Moles/Vol] 134 mmol/L 136-[address] [facility] WBC (Bld) [#/Vol] 6.4 10*3/uL 4.4-11.[address] [facility] Basophil percentage 0-5 SEEN /hpf 0-5 [facility] Bilirubin Test strip Ql (U)O rdered By: Davin Arndt on 12-27-2022 Bilirubin Ql (U) 1 mg/dL Negative [facility] Comment on above: COLOR OF URINE MAY A FFECT DIPSTICK RESULTS. Blood erythrocytes count (nu mber/volume)Ordered By: Davin Arndt on 12-27-2022 RBC (Bld) [#/Vol] 4.71 10*6/uL 4.6-6.2 [facility] Blood hemoglobin measurement (mass/volume)Ordered By: Davin Arndt on 12-27-2022 Hemoglobin (Bld) [Mass/Vol] 13.3 g/dL 13.0-16.5 [facility] Blood lymphocytes/100 leukoc ytesOrdered By: Davin Arndt on 12-27-2022 Lymphocytes/100 WBC (Bld) 13.0 % 19-41 [facility] Blood manual differential co mment interpretation (narrative result)Ordered By: Davin Arndt on 12-27-2022 Manual differential comment Ted (Bld) [Interp] SCANNED [facility] Blood monocytes/100 leukocyt esOrdered By: Davin Arndt on 12-27-2022 Monocytes/100 WBC (Bld) 8.8 % 0-10 [facility] Determination of erythrocyte mean corpuscular volume (MCV)Ordered By: Davin Arndt on 12-27-2022 MCV (RBC) [Entitic vol] 85.6 fL 80-94 [facility] Hematocrit Auto (Bld) [Volum e fraction]Ordered By: Davin Arndt on 12-27-2022 Hematocrit (Bld) [Volume fraction] 40.3 % 40-54 [facility] Ketones Test strip Ql (U)Ord ered By: Davin Arndt on 12-27-2022 Ketones Ql (U) 5 mg/dl Negative [facility] Laboratory - Chemistry and C hemistry - challengeOrdered By: Davin Arndt on 12-27-2022 CO2 [Moles/Vol] 27.0 mmol/L 21.0-32.0 [facility] Urea nitrogen/Creatinine [Mass ratio] 16.8 mg/mg 10-20 [facility] Laboratory - Hematology and Cell countsOrdered By: Davin Arndt on 12-27-2022 Erythrocyte distribution width (RBC) [Entitic vol] 46.0 fL 35.1-43.9 [facility] Erythrocyte distribution width (RBC) [Ratio] 14.9 % 11.6-14.6 [facility] Immature granulocytes/100 WBC (Bld) 1.300 % 0.0-0.9 [facility] Comment on above: IG% - Immature Granu locytes (promyelocytes, myelocytes and metamyelocytes) > 1% indicates that a LEFT SHIFT is Present. MCH (RBC) [Entitic mass] 28.2 pg 27.0-32.0 [facility] Nucleated RBC/100 WBC (Bld) [Ratio] 0 % 0-5 [facility] MCHC Auto (RBC) [Mass/Vol]Or dered By: Davin Arndt on 12-27-2022 MCHC (RBC) [Mass/Vol] 33.0 g/dL 32-36 [facility] Mucus LM Ql (Urine sed)Order ed By: Davin Arndt on 12-27-2022 Mucus Ql (Urine sed) 1+ /hpf [facility] Nitrite Test strip Ql (U)Ord ered By: Davin Arndt on 12-27-2022 Nitrite Ql (U) Negative Negative [facility] No Panel InformationOrdered By: Davin Arndt on 12-27-2022 Estimated Creatinine Clearance Calc 65.84 ml/min [facility] Estimated GFR (MDRD) Amer 94 mL/min >60 [facility] Comment on above: GFR Calc Estimated GFR (MDRD) Non-Af Amer 78 mL/min >60 [facility] Comment on above: Non- GFR Calc Platelets bldOrdered By: Chino Arndt on 12-27-2022 Platelets (Bld) [#/Vol] 88 10*3/uL 150-450 [facility] Protein Test strip Ql (U)Ord ered By: Davin Arndt on 12-27-2022 Protein Ql (U) 30 mg/dl Negative [facility] Serum or plasma calcium renetta urement (mass/volume)Ordered By: Davin Arndt on 12-27-2022 Calcium [Mass/Vol] 9.6 mg/dL 8.5-10.[address] [facility] Serum or plasma creatinine m easurement (mass/volume)Ordered By: Davin Arndt on 12-27-2022 Creatinine [Mass/Vol] 1.01 mg/dL 0.70-1.30 [facility] Comment on above: The validity of the calculated GFR & GFRAA in patients over 70 years has not been determined. Clinical correlation is essential. Serum or plasma urea nitroge n measurement (mass/volume)Ordered By: Davin Arndt on 12-27-2022 Urea nitrogen [Mass/Vol] 17 mg/dL 7-18 [facility] Squamous epithelial cells de tection in urine sediment by light microscopyOrdered By: Davin Arndt on 12-27-2022 Epithelial cells.squamous LM Ql (Urine sed) 0-5 SEEN /hpf 0-5 [facility] Thin prep Papanicolaou smear with manual screeningOrdered By: Davin Arndt on 12-27-2022 Thin prep Papanicolaou smear with manual screening 7 5-15 [facility] Urine blood detectionOrdered By: Davin Arndt on 12-27-2022 RBC Ql (U) Negative Negative [facility] RBC Ql (U) 0 SEEN /hpf 0-5 [facility] Urine clarityOrdered By: Chino Arndt on 12-27-2022 Clarity (U) Sl. Cloudy Clear [facility] Urine color determinationOrd ered By: Davin Arndt on 12-27-2022 Color (U) Yellow Yellow [facility] Urine glucose detectionOrder ed By: Davin Arndt on 12-27-2022 Glucose Ql (U) Normal mg/dl Normal [facility] Urine leukocyte esterase det ection by dipstickOrdered By: Davin Arndt on 12-27-2022 Leukocyte esterase Test strip Ql (U) 25 /ul Negative [facility] Urine pHOrdered By: Davin lin on 12-27-2022 pH (U) 5.0 [pH] 5.0 - 8.0 [facility] Urine sediment bacteria coun t by microscopy (number/high power field)Ordered By: Davin Arndt on 12-27-2022 Bacteria LM.HPF (Urine sed) [#/Area] 0 /[HPF] None Seen [facility] Urine specific gravity measu rementOrdered By: Davin Arndt on 12-27-2022 Specific gravity (U) [Rel density] 1.020 1.002-1.030 [facility] Urobilinogen Auto test strip Ql (U)Ordered By: Davin Arndt on 09-22-2023 Urobilinogen Ql (U) 4 mg/dl Normal [facility] No Panel Informationon 10-29 Prostate Specific Antigen Screen 2.40 ng/mL 0.00-4.00 [facility] Comment on above: This test was perfor med using the TPSA assay method for the[facility] chemistry system. Values obtained with differentassay methods cannot be used interchangably.When changing PSA assays in the course of monitoring apatient, additional sequential testing should be carriedout to confirm baseline values. Vital Signs Date Time Vital Sign Value Performing Clinician Faci lity 09-15-2024 10:41-0400 Body height 172.[address] Idris Castillo DO Work Phone: [facility] 09-15-2024 10:41-0400 Body mass index (BMI) [Ratio] 36.1 kg/m2 Dr. Idris Castillo DO Work Phone: [facility] 09-15-2024 10:41-0400 Body temperature 98.1 [degF] Dr. Idris Castillo DO Work Phone: [facility] 09-15-2024 10:41-0400 Body weight 108.[address] Idris Castillo DO Work Phone: [facility] 09-15-2024 10:41-0400 Diastolic blood pressure 82 mm[Hg] Dr. Idris Castillo DO Work Phone: [facility] 09-15-2024 10:41-0400 Heart rate 68 /min Dr. Idris Castillo DO Work Phone: [facility] 09-15-2024 10:41-0400 Respiratory rate 18 /min Dr. Idris Castillo DO Work Phone: [facility] 09-15-2024 10:41-0400 SaO2% (BldA) [Mass fraction] 96 % Dr. Idris Castillo DO Work Phone: [facility] 09-15-2024 10:41-0400 Systolic blood pressure 123 mm[Hg] Dr. Idris Castillo DO Work Phone: [facility] 12-27-2022 13:45-0400 Respiratory rate 18 /min [facility] 12-27-2022 10:53-0400 Body height 172.72 cm [facility] 12-27-2022 10:53-0400 Body mass index (BMI) [Ratio] 39 kg/m2 [facility] 12-27-2022 10:53-0400 Body temperature 97.3 [degF] [facility] 12-27-2022 10:53-0400 Body weight 116.57 kg [facility] 12-27-2022 10:53-0400 Diastolic blood pressure 89 mm[Hg] [facility] 12-27-2022 10:53-0400 Heart rate 73 /min [facility] 12-27-2022 10:53-0400 SaO2% (BldA) [Mass fraction] 97 % [facility] 12-27-2022 10:53-0400 Systolic blood pressure 102 mm[Hg] [facility] Encounters Encounter Date Encounter Type Care Provider Facility Start: 09-15-2024 End: 09-15-[address] Idris Castillo DO Work Phone: [facility] Work Phone: Start: 09-15-2024 End: 09-15-[address] Zelalem Magdaleno MD -[facility] Work Phone: Start: 03-19-2024 ambulatory Mony Miguel Fa cility:[facility] Start: 03-19-2024 End: 03-19-2024 ambulatory Idris Castillo Facility:[facility] Start: 03-17-2024 End: 03-17-2024 ambulatory Idris Castillo Facility:[facility] Start: 12-17-2023 End: 12-17-2023 ambulatory Danica Leon NP Facility:[facility] Start: 12-16-2023 ambulatory Idris Castillo Facility: [facility] Start: 12-15-2023 End: 12-15-2023 ambulatory Idris Castillo Facility:[facility] Start: 03-06-2023 End: 03-06-2023 ambulatory [facility] Work Phone: Start: 03-06-2023 End: 03-06-2023 [facility] Start: 02-14-2023 End: 02-14-2023 [facility] Start: 01-29-2023 End: 01-29-2023 ambulatory [facility] Work Phone: Start: 01-29-2023 End: 01-29-2023 [facility] Novoa [facility] Start: 01-22-2023 End: 01-22-2023 ambulatory [facility] Work Phone: Start: 01-22-2023 End: 01-22-2023 [facility] Start: 01-15-2023 End: 01-15-2023 ambulatory [facility] Work Phone: Start: 01-15-2023 End: 01-15-2023 [facility] Start: 12-27-2022 End: 12-27-2022 Emergency department patient visit [facility] Work Phone: Start: 10-29-2022 End: 10-29-2022 ambulatory [facility] Work Phone: Start: 10-29-2022 End: 10-29-2022 [facility]: Start: 10-15-2021 End: 10-15-2021 [facility] Procedures Date Procedure Procedure Detail Performing Clinician Start: 01-29-2023 Clostridium difficil e detection Start: 01-29-2023 Lactoferrin measurement Start: 01-29-2023 Nucleic acid assay Start: 01-29-2023 Ova OR parasites identification Plan of Treatment Date Care Activity Detail Author Start: 01-29-2023 Procedure [facility] Start: 01-22-2023 Procedure [facility] Start: 10-15-2021 Borrelia burgdorferi blot test [facility] Work Phone: Alanine aminotransfe rase [Enzymatic activity/volume] in Serum or Plasma [facility] Albumin [Mass/volume ] in Serum or Plasma [facility] Alkaline phosphatase [Enzymatic activity/volume] in Serum or Plasma [facility] Anion gap in Serum or Plasma [facility] Bilirubin, total measurement [facility] BUN/Creatinine ratio [facility] C reactive protein [Mass/volume] in Serum or Plasma [facility] Calcium [Mass/volume ] in Serum or Plasma [facility] Carbon dioxide, tota l [Moles/volume] in Central venous blood [facility] CBC W Auto Different ial panel - Blood [facility] Cobalamin (Vitamin B 12) [Mass/volume] in Serum or Plasma [facility] Creatinine [Mass/vol ume] in Serum or Plasma [facility] Ferritin [Mass/volum e] in Serum or Plasma [facility] Folate [Moles/volume ] in Serum or Plasma [facility] Glucose [Mass/volume ] in Serum or Plasma [facility] Helicobacter pylori [Presence] in Stomach by urea breath test [facility] Iron [Mass/mass] in Unspecified specimen [facility] Iron saturation [Mas s Fraction] in Serum or Plasma [facility] Laboratory data interpretation [facility] Work Phone: Lactate dehydrogenas e measurement [facility] Measurement of renal function [facility] Ova and parasites id entified in Unspecified specimen by Light microscopy [facility] Patient Education ED Weakness (Uncertain Cause) [facility] Work Phone: Patient referral [facility] Work Phone: Potassium measurement [facility] Procedure [facility] Serum chloride measurement [facility] Sodium measurement [facility] Total iron binding c apacity measurement [facility] Total protein measurement [facility] Urea nitrogen [Mass/ volume] in Serum or Plasma [facility] Payers Date Payer Category Payer Medicare [id number] 2023 Self-pay [id number] 2023 Unknown [id number] 2012 Unknown [id number] 2012 Unknown MED [employer] TPA [id number] 2010 Unknown [employer] [id number] Unknown [id number] 2.16.8 [id number] Unknown [id number] 2.16.8 [id number] Unknown [id number] 2.16.8 [id number] Unknown [id number] 2.16.8 [id number] Unknown [id number] 2.16.8 [id number] Unknown [id number] 2.16.8 [id number] Unknown [id number] 2.16.8 [id number] Unknown [id number] 2.16.8 [id number] Social History Date Type Detail Facility Start: 08-20-2017 End: 12-27-2022 Tobacco smoking status NHIS Unknown if ever smoked [facility] Start: 08-20-2017 Cigarettes [facility] Start: 1950 Sex Assigned At Male [facility] Start: 03-19-2023 Tobacco smoking stat us MTIS Ex-smoker (finding) [facility] Medical Equipment Procedure Code Equipment Code Equipment Origin al Text Equipment Identifier Dates ELYSIA KING 6191-1-010 FDA Start: 08-18-2017 DOUGH,CEMENT 6191-1-010 FDA Start: 08-18-2017 TRIATHLON CRUC R ET FEM COMP FDA Start: 08-18-2017 TRIATHLON PRIMAR Y TIB BASEPLAT FDA Start: 08-18-2017 TRIATHLON TIBIAL INSERT-CS FDA Start: 08-18-2017 TRIATHLON X3 PATELLA FDA Star t: 08-18-2017 DOUGH,CEMENT 6191-1-010 FDA Start: 08-18-2017 DOUGH,CEMENT 6191-1-010 FDA Start: 08-18-2017 TRIATHLON CRUC R ET FEM COMP FDA Start: 08-18-2017 TRIATHLON PRIMAR Y TIB BASEPLAT FDA Start: 08-18-2017 TRIATHLON TIBIAL INSERT-CS FDA Start: 08-18-2017 TRIATHLON X3 PATELLA FDA Star t: 08-18-2017 DOUGH,CEMENT 6191-1-010 FDA Start: 08-18-2017 DOUGH,CEMENT 6191-1-010 FDA Start: 08-18-2017 TRIATHLON CRUC R ET FEM COMP FDA Start: 08-18-2017 TRIATHLON PRIMAR Y TIB BASEPLAT FDA Start: 08-18-2017 TRIATHLON TIBIAL INSERT-CS FDA Start: 08-18-2017 TRIATHLON X3 PATELLA FDA Star t: 08-18-2017 DOUGH,CEMENT 6191-1-010 FDA Start: 08-18-2017 DOUGH,CEMENT 6191-1-010 FDA Start: 08-18-2017 TRIATHLON CRUC R ET FEM COMP FDA Start: 08-18-2017 TRIATHLON PRIMAR Y TIB BASEPLAT FDA Start: 08-18-2017 TRIATHLON TIBIAL INSERT-CS FDA Start: 08-18-2017 TRIATHLON X3 PATELLA FDA Star t: 08-18-2017 DOUGH,CEMENT 6191-1-010 FDA Start: 08-18-2017 DOUGH,CEMENT 6191-1-010 FDA Start: 08-18-2017 TRIATHLON CRUC R ET FEM COMP FDA Start: 08-18-2017 TRIATHLON PRIMAR Y TIB BASEPLAT FDA Start: 08-18-2017 TRIATHLON TIBIAL INSERT-CS FDA Start: 08-18-2017 TRIATHLON X3 PATELLA FDA Star t: 08-18-2017 DOUGH,CEMENT 6191-1-010 FDA Start: 08-18-2017 DOUGH,CEMENT 6191-1-010 FDA Start: 08-18-2017 TRIATHLON CRUC R ET FEM COMP FDA Start: 08-18-2017 TRIATHLON PRIMAR Y TIB BASEPLAT FDA Start: 08-18-2017 TRIATHLON TIBIAL INSERT-CS FDA Start: 08-18-2017 TRIATHLON X3 PATELLA FDA Star t: 08-18-2017 DOUGH,CEMENT 6191-1-010 FDA Start: 08-18-2017 DOUGH,CEMENT 6191-1-010 FDA Start: 08-18-2017 TRIATHLON CRUC R ET FEM COMP FDA Start: 08-18-2017 TRIATHLON PRIMAR Y TIB BASEPLAT FDA Start: 08-18-2017 TRIATHLON TIBIAL INSERT-CS FDA Start: 08-18-2017 TRIATHLON X3 PATELLA FDA Star t: 08-18-2017 DOUGH,CEMENT 6191-1-010 FDA Start: 08-18-2017 DOUGH,CEMENT 6191-1-010 FDA Start: 08-18-2017 TRIATHLON CRUC R ET FEM COMP FDA Start: 08-18-2017 TRIATHLON PRIMAR Y TIB BASEPLAT FDA Start: 08-18-2017 TRIATHLON TIBIAL INSERT-CS FDA Start: 08-18-2017 TRIATHLON X3 PATELLA FDA Star t: 08-18-2017 Discharge summary 12-27-2022 Note Date & Type Note Facility 12-27-2022 Discharge summary Note Date/Time December 27, 2022 11:31am [facility] Medical Records Department [address] [place] [id number] Emergency Department Summary 12/27/22 MR#: [id number] Acct: [id number] Name: CYN MC Rep #:[id number] : 1950 72 From: Davin Arndt MD PCP: Dr. 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 He has been currently being seen by his primary care physician Dr. Castillo and the urologist Dr. Paul Phillips. States he has had dark urine for the last couple weeks. He said its reji colored. He has had decreased oral intake nausea vomiting x1 and a fever as high as 102.3. He has had no urologic procedures. No cystoscopy. Prior similar symptoms: No Recent Illness/Hospitalization: No PFSH PFSH Home Medications acetaminophen 500 mg tablet 1,000 mg (2 x 500 mg) PO Q8 #90 tabs 08/20/17 [Rx Last Taken Unknown] aspirin 325 mg tablet 325 mg PO BIDCM #60 tabs 08/20/17 [Rx Last Taken Unknown] morphine 15 mg tablet,extended release 15 mg PO BID 7 days #14 tabs 08/20/17 [Rx Last Taken Unknown] oxycodone 5 mg tablet 5 - 10 mg (1 - 2 x 5 mg) PO Q6H PRN PRN Mod-Severe Pain (4-10/10) 7 days #60 tabs 08/20/17 [Rx Last Taken Unknown] Allergy/AdvReac Type Severity Reaction Status Date / Time No Known Allergies Allergy Verified 08/05/17 13:02 Social History Smoking Status: Former smoker ROS ROS ED ROS Narrative Abnormal colored urine. Fever. Nausea vomiting x1 several days ago. Review of Systems ROS Unobtainable: Denies due to encephalopathy Constitutional Constitutional ED: Reports fever(s) Eyes Eyes: Denies blurry vision ENT ENT ED: Denies ear pain Cardiovascular Cardiovascular: Denies chest pain Respiratory/Chest Respiratory/Chest: Denies cough or dyspnea Gastrointestinal Gastrointestinal: Reports nausea and vomiting; Denies abdominal pain, constipation, diarrhea or melena Genitourinary Genitourinary ED: Reports hematuria; Denies dysuria Musculoskeletal Musculoskeletal: Denies arthralgias or back pain Integumentary Denies abscess Neurologic Neurologic: Denies headache(s) Psychiatric Psychiatric: Denies anxiety Endocrine Endocrinology: Denies polydipsia Hematologic/Lymphatic Hematologic/Lymphatic: Denies easy bruising Allergic/Immunologic Allergic/Immunologic ED: Denies mouth swelling or tongue swelling EXAM Physical Exam Narrative Exam Narrative: Appearing 72-year-old male. Vital signs stable afebrile. Patient does not lookseptic toxic. HEENT exam mild dry mucous members. Otherwise unremarkable. Lungs clear. Heart regular rhythm. Abdomen soft, nontender, nondistended normal bowel sounds no peritoneal signs. Moving all 4 extremities. Nontender no edema. Neurologically is awake alert with no focal motor deficits. Back nontender. Const Vital Signs: 12/27/22 10:53 Temperature 97.3 F L Temperature Source Temporal Pulse Rate 73 Respiratory Rate 16 Blood Pressure 102/89 H Blood Pressure Mean 93 Pulse Ox 97 Oxygen Delivery Method Room Air Positive well nourished and well developed; Negative for cachectic, contracturesor unkempt General Appearance ED: well developed and NAD; Negative for unkempt, cachectic, contractures or pallor Nutritional Appearance: Negative for cachectic HEENT Reports dry mucous membranes; Denies moist mucous membranes normocephalic and atraumatic; Negative for trauma or tenderness Mouth ED: Yes dry mucous membranes Mouth: dry mucous membranes Eyes PERRL and EOMs intact bilaterally General Eye ED: Negative for pale conjunctiva or scleral icterus Neck no lymphadenopathy, supple and no JVD General: Negative for tenderness Resp normal respiratory effort and clear to auscultation bilaterally Effort and Inspection: Negative for retractions Auscultation: Negative for rales, rhonchi or wheezes Cardio regular rate, regular rhythm, S1 normal heart sound, S2 normal heart sound and no murmurs Rate: Negative for bradycardia or tachycardic Rhythm: Negative for abnormal rhythm Heart Sounds: Negative for other GI non-tender, non-distended and no masses Inspection: Negative for abdominal distention Auscultation: normoactive bowel sounds Palpation: soft; Negative for tender or guarding no CVA tenderness Bladder / Kidney Exam: No CVA tenderness and No other Groin / Perineum Exam: Negative for edema or lesions Back/Spine no CVA tenderness General Back: Negative for CVA tenderness Cervical Spine: Negative for cervical spine tenderness Thoracic Spine / Upper Back: Negative for thoracic spinal tenderness Lumbar Spine / Lower Back: Negative for lumbar spinal tenderness Extremity Negative for normal to inspection General Extremety ED: Negative for edema General Extremity: Negative for edema Neuro oriented x3, CN's II-XII intact bilaterally, moves all extremities, no focal motor deficits and no sensory deficits noted Sensorium / Orientation: alert, oriented to person, oriented to place and oriented to time; Negative for orientation impaired, confused, lethargic or stuporous Motor Exam: strength 5/5 throughout Psych mental status grossly normal Appearance: Negative for unkempt Attitude: No agitated Mood & Affect: Negative for depressed, anxious or tearful Thought Process: normal thought process Thought Content: normal thought content Skin General Skin Exam: Negative for jaundice or pallor Lesions: no lesions and No lesion noted Rashes: no rashes Trauma: Negative for abrasion or laceration MDM MDM MDM Narrative Medical decision making narrative: 72-year-old male with recently discolored urine. Possible UTI with fever. Urinalysis and labs to be obtained. He will be given a liter of normal saline for mild dehydration. Repeat exam patient doing well at 1:35 PM. We went over all his test results. Will be discharged home with outpatient follow-up. History & Record Review Discussion w/independent historian: Patient and Family Lab Data Attestation: I reviewed the patient's lab results. Lab results narrative: CBC unremarkable. White count of 6. H&H 13 and 40. Platelets are low at 88,000. Electrolytes show a sodium 134. Potassium 3.4. Gap 7. Normal BUN and creatinine of 17 and 1. Glucose 122. Analysis shows 0 red cells. 0 white cells. 0 bacteria and no nitrates is negative. Due to his prior labs he had thrombocytopenia before. I did discuss this with his . Labs: Laboratory Results - last 24 hr 12/27/22 12/27/22 11:33 11:35 WBC 6.4 RBC 4.71 Hgb 13.3 Hct 40.3 MCV 85.6 MCH 28.2 MCHC 33.0 RDW Std Deviation 46.0 H RDW Coeff of Gayle 14.9 H Plt Count 88 L Immature Gran % (Auto) 1.300 H Neut % (Auto) 76.3 H Lymph % (Auto) 13.0 L [place] % (Auto) 8.8 Eos % (Auto) 0.3 Baso % (Auto) 0.3 Absolute Neuts (auto) 4.9 Absolute Lymphs (auto) 0.83 Nucleated RBC % 0 Differential Comment SCANNED Sodium 134 L Potassium 3.4 L Chloride 100 Carbon Dioxide 27.0 Anion Gap 7 BUN 17 Creatinine 1.01 Estim Creat Clear Calc 65.84 Est GFR (MDRD) Af Amer 94 Est GFR (MDRD) Non-Af 78 BUN/Creatinine Ratio 16.8 Glucose 122 H Calcium 9.6 Urine Color Yellow Urine Clarity Sl. Cloudy Urine pH 5.0 Ur Specific [place] 1.020 Urine Protein 30 H Urine Glucose (UA) Normal Urine Ketones 5 H Urine Occult Blood Negative Urine Nitrite Negative Urine Bilirubin 1 H Urine Urobilinogen 4 H Ur Leukocyte Esterase 25 H Urine RBC 0 SEEN Urine WBC 0-5 SEEN Ur Squamous Epith Cells 0-5 SEEN Urine Bacteria 0 SEEN Urine Mucus 1+ Discharge Plan Triage Chief Complaint: Complaint ED Provider: Davin Arndt Dx/Rx/DC Orders Clinical Impression: Generalized weakness Instructions: ED Weakness (Uncertain Cause) Prescriptions: No Action aspirin 325 MG tablet 325 mg PO BIDCM Qty: 60 0RF acetaminophen 500 MG tablet 1,000 mg PO Q8 Qty: 90 0RF morphine 15 MG tablet 15 mg PO BID 7 Days Qty: 14 0RF oxycodone 5 MG tablet 5 - 10 mg PO Q6H PRN PRN (Reason: Mod-Severe Pain (4-01/14)) 7 Days Qty: 60 0RF Primary Care Provider: Idris Castillo Referrals: Idris Castillo DO [Primary Care Provider] - 1 Week if not improving Activity Restrictions/Additional Instructions: Plenty of fluids and rest. Follow-up with your doctor to ensure you are improving. Your platelet count was low today at 88,000. You have had low platelets before. This will be set up just to be rechecked in the next 1 to 2 months. No signs of any urinary tract infection. Disposition Disposition: Home, Self Care What to do if you have Problems For any increased pain, shortness of breath, bleeding, nausea or vomiting, chestpain, or any unexpected problems, contact your Primary Care Provider. Call [facility] ([phone]) or report to the closest Emergency Room. Call 911 if necessary. 12/27/22 1341 <Electronically signed by Davin Arndt MD> Cosigner Signature (if applicable): CC: Dr. Idris Castillo DO ~ Signed [facility] Work Phone: Hospital Discharge instructions 12-27-2022 Note Date & Type Note Facility 12-27-2022 Hospital Discharg e instructions Additional Instructions Plenty of fluids and rest. Follow-up with your doctor to ensure you are improving. Your platelet count was low today at 88,000. You have had low platelets before. This will be set up just to be rechecked in the next 1 to 2 months. No signs of any urinary tract infection. [facility] Work Phone: Evaluation note Note Date & Type Note Facility Evaluation note No assessment information availa ble [facility] Work Phone: Evaluation note Note Date & Type Note Facility Evaluation note Diagnosis Onset Date Resolution Leukopenia chronic September 15 9:45am Thrombocytopenia chronic September 9:45am [facility] Work Phone: Reason for referral (narrative) Note Date & Type Note Facility Reason for referral (narrative) No reason for referral information available [facility] Work Phone: Advance Directives Advance Directive Response Recorded Date/ Time Living Will No August 18, 2017 1 1:56am Power of Billing Department Supervisor No August 18, 2017 11:56am Advance Directive Response Recorded Date/ Time Living Will No December 27, 2022 11:11am Power of Billing Department Supervisor No December 11:11am Advance Directive Response Recorded Date/ Time Living Will No December 27, 2022 10:11am Power of Billing Department Supervisor No December 10:11am Chief Complaint and Reason for Visit Chief Complaint URINARY ISSUES Chief Complaint Admit Date E-ORDER September 15, 2024 9:27 am [facility] September 15, 2024 9:45 am Reason for Visit Admit Date Leukopenia September 15, 2024 9:45 am Thrombocytopenia September 15, 2024 9:45 am Summary Purpose Family History Relationship Condition Age at Onset Recorded Date/T vanessa grandmother Diabetes mellitus Unknown mother Malignant neoplasm of breast Unknown father Hodgkin lymphoma Unknown sister Myotonic dystrophy Unknown Additional Source Comments Goals (unrecognized section and content) Goals may be documented in a n alternate sectionGoals may be documented in an alternate sectionGoals may be documented in an alternate sectionGoals may be documented in an alternate sectionGoals may be documented in an alternate sectionGoals may be documented in an alternate sectionGoals may be documented in an alternate sectionGoals may be documented in an alternate section Care Teams (unrecognized sec tion and content) Team Status: Active Member Role Status Dates Dr. Idris Castillo DO Family Provider Active Dr. Idris Castillo , DO Primary Care Provider Active Team Status: Inactive Member Role Status Dates Dr. Idris Castillo DO Primary Care Provider Active JOAQUIN URENA Attending Provider, Referring Provid er Active Team Status: Inactive Member Role Status Dates Dr. Idris Castillo DO Primary Care Provider Active Dr. Davin Arndt MD Emergency Provider Active Team Status: Inactive Member Role Status Dates Dr. Idris Castillo DO Primary Care Prov ider, Attending Provider, Referring Provider Active Team Status: Inactive Member Role Status Dates Dr. Idris Castillo DO Primary Care Provider Active Dr. Davin Arndt MD Attending Provider, Emergency Pro vider Active Team Status: Inactive Member Role Status Dates Dr. Idris Castillo DO Primary Care Provider, Attendin g Provider Active Team Status: Active Member Role Status Dates Dr. Idris Castillo DO Primary Care Provider Active Team Status: Active Member Role Status Dates Dr. Idris Castillo DO Primary Care Provider Active Start: September 15, 2024 Dr. Zelalem Magdaleno MD Attending Provider Active S tart: September 15, 2024 Dr. Zelalem Magdaleno MD Referring Provider Active S tart: September 15, 2024 Team Status: Inactive Member Role Status Dates Dr. Idris Castillo DO Primary Care Provider Active Start: September 15, 2024 End: September 15, 2024 Dr. Idris Castillo DO Referring Provider Active Start: September 15, 2024 End: September 15, 2024 Dr. Zelalem Magdaleno MD Attending Provider Active S tart: September 15, 2024 End: September 15, 2024 (unrecognized sect ion and content) No Status Records Found INFORMATION SOURCE (unrecogn ized section and content) DATE CREATED AUTHOR 09/11/2024 [facility] FOR RECORDS PERTAINING TO PATIENTS WHO ARE OR HAVE BEEN ENROLLED IN A CHEMICAL DEPENDENCY/SUBSTANCEABUSE PROGRAM, SOME INFORMATION MAY BE OMITTED. This clinical summary was aggregated from multiple sources. Caution should be exercised in using it in the provision of clinical care. This summary normalizes information from multiple sources, and as a consequence, information in this document may materially change the coding, format and clinical context of patient data. In addition, data may be omitted in some cases. CLINICAL DECISIONS SHOULD BE BASED ON THE PRIMARY CLINICAL RECORDS. [employer] provides no warranty or guarantee of the accuracy or completeness of information in this document.
[2024-09-16 14:08] LABS: H.Pylori Breath Test Negative (Negative)
== END | disposition home or self-care (01) ==
PROVIDERS: PCP Family Medicine; Referring Provider Internal Medicine Medical Oncology; Visit Provider Internal Medicine Medical Oncology
DX: D61.818 Other pancytopenia (principal); D69.6 Thrombocytopenia, unspecified; D70.9 Neutropenia, unspecified
CPT/HCPCS: 36415; 80053; 82607; 82728; 82746; 83013; 83540; 83550; 83615; 85025; 85652; 86140